=== PATIENT | male | born 1985 | race Caucasian/White ===

== ENCOUNTER 2019-05-19 13:57 | Inpatient (IN) | payer BC ==
[2019-05-19] MEDS ORDERED: ALBUTEROL SO4 2.5/IPRATROPIUM 0.5 INH SOL 3 ML VIAL.NEB. NEB ONE (14:15)
--- NOTE | 2019-05-19 14:43 | PDOC ---
History of Present Illness - General Chief Complaint: Shortness of Breath Stated Complaint: SHORTNESS OF BREATH Time Seen by Provider: 05/19/19 14:20 - History of Present Illness Initial Comments: Aquilino Raya is a 34yo man with a PMH of asthma who presents with worsening shortness of breath and productive cough. He reports that he was initially sick about a week before . At that time he had a cough and then nausea/ vomiting for a few days. He was seen at urgent care and given prednisone for the cough and some wheezing. His symptoms improved for several days, but he started feeling sick again a few days ago. He reports that he had worsening cough, now productive of sputum. He is not aware of any fever, but he does note that he has been unable to eat "for 2 weeks" due to poor appetite and generalized malaise. Mr Raya was seen again at urgent care 3-4 days ago and given a second prescription for prednisone and a z-elke for his cough. He reports that he completed the z-elke today without any improvement in his symptoms. His cough has also worsened despite treatment, and he has been coughing up green phlegm. He reports that he decided to come to the ED today because he has been having a "muscle spasm" over the right lower posterior and lateral ribs. This pain occurs with breathing, coughing, and with right arm movements. Mr Raya says that the pain has been making it difficult to breath. Mr Raya denies any recent travel, hospitalization, immobilization, history of cancer, personal or family history of blood clots, exposure to prisons or homeless populations, vaping, or cigarette smoking. He does endorse a recent 20lb weight loss over several weeks and notes that his girlfriend was treated last week for pneumonia. He additionally states that he was afraid he was very dehydrated today because his urine appeared very dark, though he has continued to void 3-4 times per day which is near his normal frequency. He denies hematuria, dysuria, or suprapubic pain. Past History - Past Medical History Allergies/Adverse Reactions: Allergies Allergy/AdvReac Type Severity Reaction Status Date / Time No Known Allergies Allergy Verified 05/19/19 14:14 Home Medications: Ambulatory Orders Albuterol Sulfate Inhaler - [Ventolin Hfa Inhaler -] 1 - 2 inh PO QID PRN Asthma: Yes COPD: No - Psycho Social/Smoking Cessation Hx Smoking History: Current some day smoker Information on smoking cessation initiated: No Drug/Substance Use Hx: Yes (marijuana) Review of Systems - Review of Systems Comments:: General: No fevers, no chills, + malaise, +weight loss HEENT: No changes in vision, no changes in hearing, + congestion, no sore throat CV: + Right lower chest pain, no palpitations, no LE edema Pulm: + SOB, + cough, + wheezing, +h/o asthma GI: No nausea or vomiting, no change in bowel habits, no melena : No frequency, no urgency, no dysuria. +dark urine Musc: No back pain, no joint swelling, no recent injury Skin: No rash, no lesions, no erythema Endo: No excessive thirst, no heat/cold intolerance Heme: No unusual bruising or bleeding, no swollen glands Neuro: No syncope, no numbness/tingling, no focal weakness Vasc: No claudication Psych: No recent change in mood, no SI or HI *Physical Exam - Vital Signs Last Vital Signs Temp Pulse Resp BP Pulse Ox 98.3 F 138 H 22 H 139/90 90 L 05/19/19 14:11 05/19/19 14:11 05/19/19 14:11 05/19/19 14:11 05/19/19 14:11 - Physical Exam General: Uncomfortable, in moderate distress HEENT: Atraumatic, PERRL, EOMI, MMM, voice normal, normal neck ROM Cards: Tachycardic, regular, no murmur appreciated Pulm: Tachypnic, hypoxic to 88% on RA, productive cough. No wheezing or crackles appreciated. Chest/back: TTP over right mid back, right lateral lower ribs. No erythema, no bruising, no rash Abd: Soft, nontender, nondistended Ext: Atraumatic. No LE edema. ROM intact. Strength 5/5 and equal bilaterally Vasc: Extremities WWP. Skin: Normal color, no rashes or lesions Neuro: A&Ox3, CN grossly intact, normal speech, motor/sensory grossly intact and symmetric Psych: Mood appropriate to situation ED Treatment Course - LABORATORY CBC & Chemistry Diagram: 05/19/19 15:19 05/19/19 15:05 Medical Decision Making - Medical Decision Making 05/19/19 14:43 Aquilino Raya is a 34yo man with a PMH of asthma who presents with two weeks of worsening shortness of breath and productive cough. He reports that he was initially sick about a week before Thanks. At this point, he was given a course of steroids about 2 weeks ago, improved, and was then given more prednisone and azithromycin earlier this week for recurrent symptoms. He notes that his girlfriend was treated last week for CAP. He additionally reports pain over the right lower ribs with breathing and with arm movement as well as "dehydration" due to very dark urine. - Tachycardic to 140's, hypoxic to around 90. No wheezing appreciated on exam, but already received nebulizer - Ddx includes asthma, influenza, URI, pneumonia, PE (though no known risk factors other than sedentary lifestyle recently due to feeling ill), UTI - CXR, CBC, CMP, d-dimer, UA, UCx - Nebs as needed 05/19/19 15:53 - Sats dropping to 80's, still tachy to 140's - CBC completed, notable for WBC 25. Chemistry pending. - CXR with [place]A "masslike density with possible infiltrate" and RLL infiltrate. C /w pneumonia, possible opportunistic infection, possible influenza - Bipap ordered for continued hypoxia - Adding remainder of septic workup, ABG, legionella antigen, influenza, acetaminophen, additional IVF, broad-spectrum antibiotics 05/19/19 17:00 - Febrile to 101.2F rectal temp - Labs reviewed. D-dimer 1678. CTA chest ordered - Chemistry notable for slight hyponatremia at 134. BUN 20.4 and Cr 1.4, no baseline available but likely elevated. Lactate slightly elevated at 2.1 - Tbili elevated at 3.5. Mild LFT elevations with AST 46, alk phos 122 - CPK pending - Will add CT abd/pelvis 05/19/19 18:29 - UA completed. 3+ blood with only 5-10 RBCs. However CPK is not elevated - CT's completed, reviewed in the ED. 05/19/19 19:10 - ABG c/w over-breathing, no other concerning abnormalities - CT read still pending - Sign out given to Dr Baumann for the remainder of his ED care. Admission pending CT results. Discussed with Dr Shanique Lopez PGY2 05/19/19 19:23 05/19/19 19:25 Discharge - Discharge Information Problems reviewed: Yes Clinical Impression/Diagnosis: Shortness of breath, Hypoxia, Metabolic alkalosis Sepsis Qualifiers: Sepsis type: sepsis due to unspecified organism Sepsis acute organ dysfunction status: unspecified Qualified Code(s): A41.9 - Sepsis, unspecified organism Condition: Guarded - Follow up/Referral - Patient Discharge Instructions - Post Discharge Activity
[2019-05-19] MEDS ORDERED: SODIUM CHLORIDE 1,000 ML IV STA (14:44)
[2019-05-19] MEDS ORDERED: ALBUTEROL SO4 0.083% IH SOL 2.5 MG/3 ML VIAL.NEB. NEB PRN (14:44)
[2019-05-19 15:27] LABS: BASO % 0.2 % (0-2.0); HEMATOCRIT 45.8 % (35.4-49); HEMOGLOBIN 15.8 GM/dL (11.7-16.9); LYMPH % 4.6 % (8-40); MCHC 34.5 g/dl (32.0-35.9); MEAN CELL VOLUME 92.8 fl (80-96); MEAN PLT VOLUME 9.1 fl (7.5-11.1); NEUT % 86.2 % (42.8-82.8); PLATELET COUNT 289 K/MM3 (134-434); RBC 4.93 M/mm3 (4.00-5.60); RDW 14.4 % (11.9-15.9); WHITE BLOOD COUNT 24.5 K/mm3 (4.0-10.0)
[2019-05-19] MEDS ORDERED: VANCOMYCIN 1,000 MG in DEXTROSE 5%-WATER - 250 ML IVPB ONE (15:37)
[2019-05-19] MEDS ORDERED: PIPERACILLIN/TAZOB 4.5 GM 4.5 GM in DEXTROSE 5%-WATER - 100 ML IVPB ONE (15:38)
[2019-05-19] MEDS ORDERED: SODIUM CHLORIDE 0.9% 500 ML INFUS.BAG IV ONE (15:40)
[2019-05-19] MEDS ORDERED: ACETAMINOPHEN 1000 MG/100 ML VIAL (NON FORMULARY) IVPB ONE (15:40)
[2019-05-19 15:57] LABS: ALBUMIN 3.4 g/dl (3.4-5.0); BILIRUBIN,TOTAL 3.5 mg/dL (0.2-1); BLOOD UREA NITROGEN 20.4 mg/dL (7-18); CALCIUM 8.7 mg/dL (8.5-10.1); CREATININE 1.4 mg/dL (0.55-1.3); POTASSIUM 4.9 mmol/L (3.5-5.1)
[2019-05-19] MEDS ORDERED: ACETAMINOPHEN INJECTION 100 ML IVPB ONE (16:13)
[2019-05-19] MEDS ORDERED: PIPERACILLIN/TAZOB 4.5 GM 4.5 GM/100 ML BAG IVPB ONE ×2 (16:14→22:46)
[2019-05-19 16:17] LABS: PLATELET ESTIMATE NORMAL
[2019-05-19] MEDS ORDERED: VANCOMYCIN 1 GRAM (PRE-DOCKED) 1,000 MG/250 ML BAG IVPB ONE (17:04)
[2019-05-19 17:22] LABS: EPI CELLS 1.4 /HPF (0-5/HPF); HYALINE CASTS 22 /lpf (0-8); URINE APPEARANCE TURBID; URINE BACTERIA 1.5 /hpf (NEGATIVE); URINE BILIRUBIN 2+ (NEGATIVE); URINE COLOR DK YELLOW; URINE GLUCOSE (UA) NEGATIVE (NEGATIVE); URINE KETONE 1+ (NEGATIVE); URINE LEUK ESTERASE TRACE (NEGATIVE); URINE NITRITE POSITIVE (NEGATIVE); URINE PROTEIN 3+ (NEGATIVE); URINE WBC 4 /hpf (0-5)
[2019-05-19 18:37] LABS: ARTERIAL BLD GAS O2 SATURATION 94.6 % (95-98); ARTERIAL BLOOD GAS BASE EXCESS 2.3 meq/l (-2-2); ARTERIAL BLOOD GAS PO2 72.3 mmHg (80-100); ARTERIAL BLOOD GAS pH 7.48 (7.35-7.45)
[2019-05-19 18:39] LABS: ALLENS TEST POSITIVE
--- NOTE | 2019-05-19 19:18 | PDOC ---
*Physical Exam - Vital Signs Last Vital Signs Temp Pulse Resp BP Pulse Ox 101.2 F H 128 H 22 H 113/82 99 05/19/19 16:54 05/19/19 19:02 05/19/19 19:02 05/19/19 19:02 05/19/19 19:02 <IbisAmalia - Last Filed: 05/19/19 21:21> - Vital Signs Last Vital Signs Temp Pulse Resp BP Pulse Ox 98.3 F 103 H 18 136/68 92 L 05/20/19 06:38 05/20/19 06:38 05/20/19 06:38 05/20/19 06:38 05/20/19 06:38 <Makayla Bay - Last Filed: 05/20/19 10:01> ED Treatment Course - LABORATORY CBC & Chemistry Diagram: 05/19/19 15:19 05/19/19 15:05 - Medications Given in the ED: ED Medications Discontinued Medications Generic Name Dose Route Start Last Admin Trade Name Adriana PRN Reason Stop Dose Admin Acetaminophen 1,000 mg 05/19/19 15:40 05/19/19 16:27 Ofirmev Injection - IVPB 05/19/19 15:41 1,000 mg ONCE ONE Administration Diphenhydramine HCl 25 mg 05/19/19 18:37 05/19/19 19:02 Benadryl Injection - IVPB 05/19/19 18:38 25 mg ONCE ONE Administration Sodium Chloride 1,000 mls @ 1,000 mls/hr 05/19/19 14:44 05/19/19 15:22 Normal Saline - IV 05/19/19 15:43 1,000 mls/hr ASDIR STA Administration Vancomycin HCl 1,000 mg/ 250 mls @ 250 mls/hr 05/19/19 15:37 05/19/19 17:13 Dextrose IVPB 05/19/19 16:36 250 mls/hr ONCE ONE Administration Protocol Piperacillin Sod/Tazobactam 100 mls @ 200 mls/hr 05/19/19 15:38 05/19/19 16: 27 Sod 4.5 gm/ Dextrose IVPB 05/19/19 16:07 200 mls/hr ONCE ONE Administration Protocol Sodium Chloride 1,000 ml 05/19/19 15:40 05/19/19 17:14 Normal Saline - IV 05/19/19 15:41 1,000 ml ONCE ONE Administration <Amalia Baumann - Last Filed: 05/19/19 21:21> - LABORATORY CBC & Chemistry Diagram: 05/20/19 05:50 05/20/19 05:50 - ADDITIONAL ORDERS Additional order review: 05/19/19 15:19 RBC 4.93 MCV 92.8 MCHC 34.5 RDW 14.4 MPV 9.1 Neutrophils % 86.2 H Lymphocytes % 4.6 L Monocytes % 9.0 Eosinophils % 0.0 Basophils % 0.2 - RADIOLOGY Radiology Studies Ordered: Category Date Time Status CHEST CTA [CT] Stat CT Scan 05/19/19 16:22 Taken - Medications Given in the ED: ED Medications Discontinued Medications Generic Name Dose Route Start Last Admin Trade Name Freq PRN Reason Stop Dose Admin Acetaminophen 1,000 mg 05/19/19 15:40 05/19/19 16:27 Ofirmev Injection - IVPB 05/19/19 15:41 1,000 mg ONCE ONE Administration Diphenhydramine HCl 25 mg 05/19/19 18:37 05/19/19 19:02 Benadryl Injection - IVPB 05/19/19 18:38 25 mg ONCE ONE Administration Ethambutol HCl 1,600 mg 05/19/19 20:18 05/20/19 00:02 Myambutol - PO 05/19/19 20:19 1,600 mg ONCE ONE Administration Sodium Chloride 1,000 mls @ 1,000 mls/hr 05/19/19 14:44 05/19/19 15:22 Normal Saline - IV 05/19/19 15:43 1,000 mls/hr ASDIR STA Administration Vancomycin HCl 1,000 mg/ 250 mls @ 250 mls/hr 05/19/19 15:37 05/19/19 17:13 Dextrose IVPB 05/19/19 16:36 250 mls/hr ONCE ONE Administration Protocol Piperacillin Sod/Tazobactam 100 mls @ 200 mls/hr 05/19/19 15:38 05/19/19 16: 27 Sod 4.5 gm/ Dextrose IVPB 05/19/19 16:07 200 mls/hr ONCE ONE Administration Protocol Rifampin 600 mg/ Dextrose 500 mls @ 166.667 mls/hr 05/19/19 20:15 05/20/19 00 :02 IV 05/19/19 20:16 Not Given ONCE ONE Isoniazid 300 mg 05/19/19 20:30 05/20/19 00:02 Inh - PO 05/19/19 20:31 300 mg ONCE ONE Administration Pyrazinamide 2,000 mg 05/19/19 20:30 05/20/19 00:02 Pyrazinamide - PO 05/19/19 20:31 2,000 mg ONCE ONE Administration Rifampin 600 mg 05/19/19 23:10 05/20/19 00:02 Rifadin - PO 05/19/19 23:11 600 mg ONCE ONE Administration Sodium Chloride 1,000 ml 05/19/19 15:40 05/19/19 17:14 Normal Saline - IV 05/19/19 15:41 1,000 ml ONCE ONE Administration <Makayla Bay - Last Filed: 05/20/19 10:01> Medical Decision Making - Medical Decision Making Pt signed out to me by Dr. Lopez, see prior note. 34 year old male with PMH asthma presented to ED for SOB/cough x1.5 weeks. He was seen at Urgent Care when his symptoms developed, given prednisone with improvement of symptoms. After finishing the steroids his symptoms returned. His cough became productive, he had large anorexia resulting in 20 pound weight loss in 2 weeks, and generalized weakness. He returned to Urgent Care x3-4 days ago, was given another course of prednisone and Azithromycin Z-pack, which did not improve his symptoms. He also complained of right sided anterior/lateral rib wall pain, worse with inspiration/coughing/right arm movement. He denied any recent travel, hospitalization, immobilization, history of cancer , personal or family history of blood clots, exposure to prisons or homeless populations, vaping, or cigarette smoking. Initial Vital Signs Temp Pulse Resp BP Pulse Ox 98.3 F 138 H 22 H 139/90 90 L 05/19/19 14:11 05/19/19 14:11 05/19/19 14:11 05/19/19 14:11 05/19/19 14:11 Pt presented to ED tachycardic, hypoxic on room air, tachypneic. No hypotension. Vital Signs Temperature 101.2 F H 05/19/19 16:54 Pulse Rate 128 H 05/19/19 19:02 Respiratory Rate 22 H 05/19/19 19:02 Blood Pressure 113/82 05/19/19 19:02 O2 Sat by Pulse Oximetry (%) 99 05/19/19 19:02 Febrile. Still tachycardic and tachypneaic. No hypotension. No hypoxia on nasal cannula. Laboratory Last Values WBC 24.5 K/mm3 (4.0-10.0) H 05/19/19 15:19 RBC 4.93 M/mm3 (4.00-5.60) 05/19/19 15:19 Hgb 15.8 GM/dL (11.7-16.9) 05/19/19 15:19 Hct 45.8 % (35.4-49) 05/19/19 15:19 MCV 92.8 fl (80-96) 05/19/19 15:19 MCH 32.0 pg (25.7-33.7) 05/19/19 15: MCHC 34.5 g/dl (32.0-35.9) 05/19/19 15:19 RDW 14.4 % (11.9-15.9) 05/19/19 15:19 Plt Count 289 K/MM3 (134-434) 05/19/19 15: MPV 9.1 fl (7.5-11.1) 05/19/19 15:19 Absolute Neuts (auto) 21.2 K/mm3 (1.5-8.0) H 05/19/19 15:19 Neutrophils % 86.2 % (42.8-82.8) H 05/19/19 15:19 Neutrophils % (Manual) 84.8 % (42.8-82.8) H 05/19/19 15:19 Band Neutrophils % 0.0 % 05/19/19 15:19 Lymphocytes % 4.6 % (8-40) L 05/19/19 15:19 Lymphocytes % (Manual) 4.0 % (8-40) L 05/19/19 15:19 Monocytes % 9.0 % (3.8-10.2) 05/19/19 15:19 Monocytes % (Manual) 5 % (3.8-10.2) 05/19/19 15:19 Eosinophils % 0.0 % (0-4.5) 05/19/19 15: Eosinophils % (Manual) 0.0 % (0-4.5) 05/19/19 15: Basophils % 0.2 % (0-2.0) 05/19/19 15: Basophils % (Manual) 0.0 % (0-2.0) 05/19/19 15:19 Myelocytes % (Man) 0 % (0-2) 05/19/19 15: Promyelocytes % (Man) 0 % (0-2) 05/19/19 15: Blast Cells % (Manual) 0 % (0-0) 05/19/19 15: Nucleated RBC % 0 % (0-0) 05/19/19 15: Metamyelocytes 0 % (0-2) 05/19/19 15: Platelet Estimate Normal 05/19/19 15: Polychromasia 1+ 05/19/19 15: D-Dimer 1678 ng/ml (0-500) H 05/19/19 15: Anticoagulation Therapy No Result Required. 05/19/19 18:31 Puncture Site Right radial 05/19/19 18:31 ABG pH 7.48 (7.35-7.45) H 05/19/19 18:31 ABG pCO2 at Pt Temp 34.0 mmHg (35-45) L 05/19/19 18:31 ABG pO2 at Pt Temp 72.3 mmHg (80-100) L 05/19/19 18:31 ABG HCO3 25.0 mmol/L (22-27) 05/19/19 18:31 ABG O2 Sat (Measured) 94.6 % (95-98) L 05/19/19 18:31 ABG O2 Content 18.1 % vol 05/19/19 18:31 ABG Base Excess 2.3 meq/l (-2-2) H 05/19/19 18:31 Ki Test Positive 05/19/19 18:31 O2 Delivery Device No Result Required. 05/19/19 18:31 Oxygen Flow Rate No 05/19/19 18:31 Vent Mode No Result Required. 05/19/19 18:31 Vent Rate No Result Required. 05/19/19 18:31 Mechanical Rate No Result Required. 05/19/19 18:31 Pressure Support Vent No Result Required. 05/19/19 18:31 Sodium 134 mmol/L (136-145) L 05/19/19 15:05 Potassium 4.9 mmol/L (3.5-5.1) 05/19/19 15:05 Chloride 95 mmol/L (98-107) L 05/19/19 15:05 Carbon Dioxide 29 mmol/L (21-32) 05/19/19 15:05 Anion Gap 9 MMOL/L (8-16) 05/19/19 15:05 BUN 20.4 mg/dL (7-18) H 05/19/19 15:05 Creatinine 1.4 mg/dL (0.55-1.3) H 05/19/19 15:05 Est GFR (CKD-EPI)AfAm 74.91 05/19/19 15:05 Est GFR (CKD-EPI)NonAf 64.63 05/19/19 15:05 Random Glucose 152 mg/dL (74-106) H 05/19/19 15:05 Lactic Acid 2.1 mmol/L (0.4-2.0) H 05/19/19 16:04 Calcium 8.7 mg/dL (8.5-10.1) 05/19/19 15:05 Total Bilirubin 3.5 mg/dL (0.2-1) H 05/19/19 15:05 AST 46 U/L (15-37) H 05/19/19 15:05 ALT 54 U/L (13-61) 05/19/19 15:05 Alkaline Phosphatase 122 U/L (45-117) H 05/19/19 15:05 Creatine Kinase 141 U/L (26-308) 05/19/19 15:05 Total Protein 8.0 g/dl (6.4-8.2) 05/19/19 15:05 Albumin 3.4 g/dl (3.4-5.0) 05/19/19 15:05 Urine Color Dk yellow 05/19/19 17:11 Urine Appearance Turbid 05/19/19 17:11 Urine pH 5.0 (5.0-8.0) 05/19/19 17:11 Ur Specific Chauncey 1.035 (1.010-1.035) 05/19/19 17:11 Urine Protein 3+ (NEGATIVE) H 05/19/19 17:11 Urine Glucose (UA) Negative (NEGATIVE) 05/19/19 17:11 Urine Ketones 1+ (NEGATIVE) H 05/19/19 17:11 Urine Blood 3+ (NEGATIVE) H 05/19/19 17:11 Urine Nitrite Positive (NEGATIVE) H 05/19/19 17:11 Urine Bilirubin 2+ (NEGATIVE) H 05/19/19 17:11 Urine Urobilinogen 2.0 mg/dL (0.2-1.0) 05/19/19 17:11 Ur Leukocyte Esterase Trace (NEGATIVE) 05/19/19 17:11 Urine WBC (Auto) 4 /hpf (0-5) 05/19/19 17:11 Urine RBC (Auto) 5-10 /hpf (0-4) 05/19/19 17:11 Urine Casts (Auto) 22 /lpf (0-8) 05/19/19 17:11 U Pathogenic Cast Auto Positive /lpf (NEGATIVE) 05/19/19 17:11 U Epithel Cells (Auto) 1.4 /HPF (0-5/HPF) 05/19/19 17:11 Urine Bacteria (Auto) 1.5 /hpf (NEGATIVE) 05/19/19 17:11 Influenza A (Rapid) Negative (Negative) 05/19/19 16:04 Influenza B (Rapid) Negative (Negative) 05/19/19 16:04 Leukocytosis with left shift. No anemia. D-dimer elevated. CTA performed. Mild lactic acidosis. IVF running. Elevated total bilirubin. Hematuria. Negative influenza testing. 05/19/19 20:09 Radiologist called, reported CT concerning for TB. Pt transferred to Room 8 for isolation. Family members given N95 masks. ID paged. 05/19/19 20:48 Dr. Naranjo, ID, recommended initiation of RIPE, pulmonary consult (may need bronch, may need steroids), HIV testing, PCP, legionella testing. Dr. Bass informed, recommended no steroids at this time. Pt to be admitted under Dr. Buckner care. Pending admission. <Amalia Baumann - Last Filed: 05/19/19 21:21> - Critical Care Time Total Critical Care Time (minutes): 60 Critical Care Statement: The care of this patient involved high complexity decision making to prevent further life threatening deterioration of the patient 's condition and/or to evaluate & treat vital organ system(s) failure or risk of failure. <Makayla Bay - Last Filed: 05/20/19 10:01> Discharge - Discharge Information Problems reviewed: Yes - Admission Yes <Amalia Baumann - Last Filed: 05/19/19 21:21> <Makayla Bay - Last Filed: 05/20/19 10:01> - Discharge Information Clinical Impression/Diagnosis: Shortness of breath, Hypoxia, Metabolic alkalosis, Cavitary lesion of lung Sepsis Qualifiers: Sepsis type: sepsis due to unspecified organism Sepsis acute organ dysfunction status: unspecified Qualified Code(s): A41.9 - Sepsis, unspecified organism Condition: Guarded
[2019-05-19] MEDS ORDERED: RIFAMPIN IV ONE (20:15)
[2019-05-19] MEDS ORDERED: DEXTROSE 5% IV ONE (20:15)
[2019-05-19] MEDS ORDERED: WATER IV ONE (20:15)
[2019-05-19] MEDS ORDERED: ETHAMBUTOL HCL 400 MG TABLET PO ONE (20:18)
[2019-05-19] MEDS ORDERED: ISONIAZID 300 MG TABLET (FP) PO ONE (20:30)
[2019-05-19] MEDS ORDERED: PYRAZINAMIDE 500 MG TABLET PO ONE (20:30)
--- NOTE | 2019-05-19 21:07 | PDOC ---
Documentation entered by Elena Castaneda SCRIBE, acting as scribe for Makayla Bay MD. Makayla Bay MD: This documentation has been prepared by the Leonel adam Brenda, SCRIBE, under my direction and personally reviewed by me in its entirety. I confirm that the documentation accurately reflects all work, treatment, procedures, and medical decision making performed by me. Attending Attestation - Resident Resident Name: JohnCarrie - ED Attending Attestation I have performed the following: I have examined & evaluated the patient, The case was reviewed & discussed with the resident, I agree w/resident's findings & plan, Exceptions are as noted - HPI HPI: 05/19/19 16:51 The patient is a 34 year old male, with a significant PMH of asthma (never hospitalized, not on controller meds, albuterol PRN) who presents to the emergency department with 2 weeks of a productive cough and shortness of breath , which progressed into right pleuritic paraspinal thoracic pain and right sided chest pain over the last 3 days. Patient notes that his chest pain and thoracic back pain are aggravated by breathing and coughing. Patient states that what finally prompted him into coming into the ED was seeing dark orange urine today. Patient also endorses 4 episodes of nausea and NBNB vomiting last week, but none this wk. He also notes a 20 pound weight loss in the last 2 weeks. Pt's partner at the bedside was here in the hospital 2 weeks ago for pneumonia, and pt was with her in the hospital almost everyday. Denies calf pain , swelling, Denies recent travel. Denies hx PNA or similar sxs as today. No hx vaping. No exposure to homeless, intermediate population. Works in construction. The patient denies headache and dizziness. Denies fever, chills, diarrhea and constipation. Denies dysuria, frequency, urgency and hematuria. Denies sore throat. Allergies: NKA Past surgical history: None reported Social history: Current someday smoker. Smokes marijuana. - Physicial Exam PE: 05/19/19 16:51 Agree with resident's exam. - Medical Decision Making 05/19/19 19:04 34yo M hx asthma, presents to the ED with 2 weeks of progressive SOB, productive cough, fevers, back pain, weight loss. Pt tachycardic to 140, in sinus, febrile. He is also hypoxic to 90% on RA, corrects to 95% with NC. +mildly increased WOB CXR concerning for possible multifocal PNA, CT recommended Labs with leukocytosis to 25, pt covered with vanc/zosyn (he just completed a z- pack) Labs also remarkable for hyperbili to 3.5, mildly elevated alk phos Dimer ++ Ordered CTA to r/o PE and to further evaluate CXR findings Also ordered CTAP given hyperbilirubinemia Pt on bipap for resp support CTA/CTAP pending, signed out to evening team
--- NOTE | 2019-05-19 21:53 | HP ---
CHIEF COMPLAINT: productive cough + SOB PCP: HISTORY OF PRESENT ILLNESS: 34 y/o M, pmh of asthma presents w/ SOB and greenish productive cough of 1 week duration that started spontaneously and was associated with generalized weakness , decrease in appetite, 20b weight loss and right sided rib pain. Pt reports that 1 week ago he began to feel short of breath for which he went to a urgent care, where he was given prednisone for 3 days. His symptoms did not improve and he developed a productive cough w/ greenish sputum, for which he returned to the urgent care, where he was given another dose of prednisone and a Z-pack, which he completed today. Pt reports that his symptoms have worsened since onset. He attributes his rib pain to movement and coughing. He reports that his girl friend was recently diagnosed and treated for pneumonia. On admission pt was febrile at 101.2F, tachy to 140s and hypoxic to the high 80s. He was placed on BiPaP and his O2 sat came back up. He denies any recent travels, close contact at facilities, exposure to prisons or homeless populations, night sweats, n/v/d/chest pain, exposure to TB positive pts. ER course was notable for: (1)Pt started on Vanc and Zosyn (2)Pt started on 4 drug regime for TB- Isoniazid, Pyrazinamide, Ethambutol, Rifampin (3)CXR: left upper lobe mass like density w/ possible infiltrates and RLL infiltrates Recent Travel: denies PAST MEDICAL HISTORY: Asthma, never been intubated or hospitalized for asthma PAST SURGICAL HISTORY: Tonsillectomy Social History: Smoking:denies cigarette smoking Alcohol:occasional Drugs: Marijuana Allergies No Known Allergies Allergy (Verified 05/19/19 14:14) HOME MEDICATIONS: Home Medications Medication Instructions Recorded Albuterol Sulfate Inhaler - 1 - 2 inh PO QID PRN 05/19/19 [Ventolin Hfa Inhaler -] REVIEW OF SYSTEMS CONSTITUTIONAL: Admits: fever, generalized weakness, malaise, loss of appetite, weight change Absent: chills, diaphoresis HEENT: Absent: rhinorrhea, nasal congestion, throat pain, throat swelling, difficulty swallowing, mouth swelling, ear pain, eye pain, CARDIOVASCULAR: Absent: chest pain, syncope, palpitations, irregular heart rate, lightheadedness , peripheral edema RESPIRATORY: Admits: cough, shortness of breath, Absent: dyspnea with exertion, orthopnea, wheezing, stridor, GASTROINTESTINAL: Absent: abdominal pain, abdominal distension, nausea, vomiting, diarrhea, constipation, melena GENITOURINARY: Admits: increased frequency, Absent: dysuria, urgency, hesitancy, hematuria, flank pain, genital pain MUSCULOSKELETAL: Admits: Right sided upper back and lateral rib pain Absent: arthralgia, joint swelling, neck pain SKIN: Absent: rash, itching, pallor HEMATOLOGIC/IMMUNOLOGIC: Absent: easy bleeding, easy bruising, lymphadenopathy, ENDOCRINE: Admits: 20Ib weight loss recently in the past few weeks Absent: unexplained weight gain, heat intolerance, cold intolerance NEUROLOGIC: Absent: headache, focal weakness or paresthesias, dizziness, unsteady gait, seizure, mental status changes, PSYCHIATRIC: Absent: anxiety, depression, suicidal PHYSICAL EXAMINATION Vital Signs - 24 hr 05/19/19 05/19/19 05/19/19 14:11 16:54 18:40 Temperature 98.3 F 101.2 F H Pulse Rate 138 H Pulse Rate [ Left Apical] Respiratory 22 H Rate Blood Pressure 139/90 Blood Pressure [Left Arm] O2 Sat by Pulse 90 L 97 Oximetry (%) GENERAL: Awake, alert, and fully oriented, in no acute distress. Pt on NC 2L, tolerating well, no breathing difficulty at the moment EYES: Pupils equal, round and reactive to light, extraocular movements intact EARS, NOSE, THROAT: Oropharynx clear without exudates. Moist mucous membranes. NECK: Normal range of motion, supple without lymphadenopathy LUNGS: Breath sounds equal, clear to auscultation bilaterally. Mild Wheezes in b /l lower lobes, and no crackles. HEART: Regular rate and rhythm, normal S1 and S2 without murmur, rub or gallop. ABDOMEN: Soft, nontender, not distended, normoactive bowel sounds, no guarding, no rebound, no masses. MUSCULOSKELETAL: Right sided Rib tenderness to palpation. Normal range of motion at all joints. No bony deformities. No CVA tenderness. UPPER EXTREMITIES: 2+ pulses, warm, well-perfused. No cyanosis. No peripheral edema. LOWER EXTREMITIES: 2+ pulses, warm, well-perfused. No calf tenderness. No peripheral edema. NEUROLOGICAL: Cranial nerves II-XII intact. Normal speech PSYCHIATRIC: Cooperative. Good eye contact. Anxious SKIN: Warm, dry, normal turgor Laboratory Results - last 24 hr 05/19/19 05/19/19 05/19/19 15:05 15:19 15:19 WBC 24.5 H RBC 4.93 Hgb 15.8 Hct 45.8 MCV 92.8 MCH 32.0 MCHC 34.5 RDW 14.4 Plt Count 289 MPV 9.1 Absolute Neuts (auto) 21.2 H Neutrophils % 86.2 H Neutrophils % (Manual) 84.8 H Band Neutrophils % 0.0 Lymphocytes % 4.6 L Lymphocytes % (Manual) 4.0 L Monocytes % 9.0 Monocytes % (Manual) 5 Eosinophils % 0.0 Eosinophils % (Manual) 0.0 Basophils % 0.2 Basophils % (Manual) 0.0 Myelocytes % (Man) 0 Promyelocytes % (Man) 0 Blast Cells % (Manual) 0 Nucleated RBC % 0 Metamyelocytes 0 Platelet Estimate Normal Polychromasia 1+ D-Dimer 1678 H Anticoagulation Therapy Puncture Site ABG pH ABG pCO2 at Pt Temp ABG pO2 at Pt Temp ABG HCO3 ABG O2 Sat (Measured) ABG O2 Content ABG Base Excess Ki Test O2 Delivery Device Oxygen Flow Rate Vent Mode Vent Rate Mechanical Rate Pressure Support Vent Sodium 134 L Potassium 4.9 Chloride 95 L Carbon Dioxide 29 Anion Gap 9 BUN 20.4 H Creatinine 1.4 H Est GFR (CKD-EPI)AfAm 74.91 Est GFR (CKD-EPI)NonAf 64.63 Random Glucose 152 H Lactic Acid Calcium 8.7 Total Bilirubin 3.5 H AST 46 H ALT 54 Alkaline Phosphatase 122 H Creatine Kinase 141 Total Protein 8.0 Albumin 3.4 Urine Color Urine Appearance Urine pH Ur Specific [place] Urine Protein Urine Glucose (UA) Urine Ketones Urine Blood Urine Nitrite Urine Bilirubin Urine Urobilinogen Ur Leukocyte Esterase Urine WBC (Auto) Urine RBC (Auto) Urine Casts (Auto) U Pathogenic Cast Auto U Epithel Cells (Auto) Urine Bacteria (Auto) Influenza A (Rapid) Influenza B (Rapid) ASSESSMENT/PLAN: 34 y/o M, pmh of asthma presents w/ SOB and greenish productive cough of 1 week duration that started spontaneously and was associated with generalized weakness , decrease in appetite, 20b weight loss and right sided rib pain likely 2/2 to CAP #Sepsis likely 2/2 to Pneumonia SOB and productive cough must r/o TB in the setting of 20Ib weight loss, generalized weakness, decreased appetite, CT chest with cavitary lesions Other causes to consider include necrotizing bacterial multifocal pneumonia caused by staph aureus or pseudomonas, aspergillosis or malignancy White count 24.5, Febrile 101.2 rectal Flu negative ABG- respiratory alkalosis D-Dimers elevated to 1678 Lactic acid at 2.1 mildly elevated CXR- showing left upper lobe mass like density w/ possible infiltrates and RLL infiltrates CTA chest-prelim- There is a thick walled cavitary mass lesion in the anterior basal segment of the right lower lobe, 3.1 x 2.9 x 3.3 cm with an 8 cm long communicating. There is a cavitary lesion with thick irregular griggs in the left upper lobe, measuring 5.3 x 4.2 x 5.2 cm. The possibility of tuberculosis cannot be ruled out CT a/p- pending Pt started on Vanc and zosyn Pt started on 4 drug regime for TB- Isoniazid, Pyrazinamide, Ethambutol, Rifampin ID consulted- Dr Naranjo Pulmonary consulted- Dr. Estrada, will likely need bronchoscopy Sputum Cx sent, AFB cx/smear sent HIV testing sent Quantiferon for TB Crypto serum ag #Asthma Albuterol as need NC 2L if desats or sob- place on BiPaP #Hyper bili, elevated alk phos RUQ Doppler ultrasound- r/o cholestasis #DVT ppx scds b/l FEN monitor lytes regular diet Dispo: f/u Cx in am, cont TB tx, cont abx Visit type - Emergency Visit Emergency Visit: Yes ED Registration Date: 05/19/19 Care time: The patient presented to the Emergency Department on the above date and was hospitalized for further evaluation of their emergent condition. - New Patient This patient is new to me today: Yes Date on this admission: 05/21/19 - Critical Care Critical Care patient: No ATTENDING PHYSICIAN STATEMENT I saw and evaluated the patient. I reviewed the resident's note and discussed the case with the resident. I agree with the resident's findings and plan as documented. SUBJECTIVE: OBJECTIVE: ASSESSMENT AND PLAN:
--- NOTE | 2019-05-19 22:05 | PN ---
Teaching Attending Note Name of Resident: Vinayak Ashley ATTENDING PHYSICIAN STATEMENT I saw and evaluated the patient. I reviewed the resident's note and discussed the case with the resident. I agree with the resident's findings and plan as documented. SUBJECTIVE: 34-year-old male with a medical history of asthma, not taking any controller medications apart from albuterol as needed, presented complaint of 2 weeks of productive cough with green sputum and worsening shortness of breath. Also some pleuritic chest pain in his right chest over the past 3 days. Patient has no recent travels outside of the country, born in the , never incarcerated. Denies any history of TB or any contacts with any patients with TB. No history of IV drug abuse. Patient sought medical attention at the urgent care over the past week completed 8 days of prednisone 40 mg daily and a Z-Gus. OBJECTIVE: Last Vital Signs Temp Pulse Resp BP Pulse Ox 101.2 F H 128 H 22 H 113/82 98 05/19/19 16:54 05/19/19 19:02 05/19/19 19:02 05/19/19 19:02 05/19/19 20:30 GENERAL: Well developed, well nourished. Awake and alert. No acute distress. Obese HEENT: Normocephalic, atraumatic. PERRLA, EOMI. No conjunctival pallor. Sclera are non- icteric. Moist mucous membranes. Oropharynx is clear. NECK: Supple. Full ROM. No JVD. Carotid pulses 2+ and symmetric, without bruits. No thyromegaly. No lymphadenopathy. CARDIOVASCULAR: Regular rate and rhythm. No murmurs, rubs, or gallops. Distal pulses are 2+ and symmetric. PULMONARY: No evidence of respiratory distress. Lungs clear to auscultation bilaterally. No wheezing, rales or rhonchi. ABDOMINAL: Soft. Non-tender. Non-distended. No rebound or guarding. No organomegaly. Normoactive bowel sounds. MUSCULOSKELETAL Normal range of motion at all joints. No bony deformities or tenderness. No CVA tenderness. EXTREMITIES: No cyanosis. No clubbing. No edema. No calf tenderness. SKIN: Warm and dry. Normal capillary refill. No rashes. No jaundice. PSYCHIATRIC: Cooperative. Good eye contact. Appropriate mood and affect. Abnormal Lab Results 05/19/19 05/19/19 05/19/19 15:05 15:19 15:19 WBC 24.5 H Absolute Neuts (auto) 21.2 H Neutrophils % 86.2 H Neutrophils % (Manual) 84.8 H Lymphocytes % 4.6 L Lymphocytes % (Manual) 4.0 L D-Dimer 1678 H ABG pH ABG pCO2 at Pt Temp ABG pO2 at Pt Temp ABG O2 Sat (Measured) ABG Base Excess Sodium 134 L Chloride 95 L BUN 20.4 H Creatinine 1.4 H Random Glucose 152 H Lactic Acid Total Bilirubin 3.5 H AST 46 H Alkaline Phosphatase 122 H Urine Protein Urine Ketones Urine Blood Urine Nitrite Urine Bilirubin 05/19/19 05/19/19 05/19/19 16:04 17:11 18:31 WBC Absolute Neuts (auto) Neutrophils % Neutrophils % (Manual) Lymphocytes % Lymphocytes % (Manual) D-Dimer ABG pH 7.48 H ABG pCO2 at Pt Temp 34.0 L ABG pO2 at Pt Temp 72.3 L ABG O2 Sat (Measured) 94.6 L ABG Base Excess 2.3 H Sodium Chloride BUN Creatinine Random Glucose Lactic Acid 2.1 H Total Bilirubin AST Alkaline Phosphatase Urine Protein 3+ H Urine Ketones 1+ H Urine Blood 3+ H Urine Nitrite Positive H Urine Bilirubin 2+ H Studies reviewed ASSESSMENT AND PLAN: 34-year-old Immunocompetent male with sepsis, tachycardia, tachypnea, lactic acidosis, fever of 101.2f, leukocytosis with multiple cavitary lesions found on chest CT. Differential diagnosis at this point includes necrotizing bacterial multifocal pneumonia which Is probably secondary to non-AFB bacteria such as staph aureus or Pseudomonas species. pulmonary tuberculosis Is still certainly a possibility and must be ruled out however is less likely given paucity of risk factors. r/o cavitary fungal disease such as aspergillosis, malignancy. 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 Admit to [facility] Patient must be in airborne isolation 3 sputum's for AFB culture and smear Sputum for AFB PCR QuantiFERON HIV serology Sputum for bacterial culture Urine Legionella antigen Fungitell Aspergillus serum antigen Histo urine antigen Crypto serum antigen Vancomycin 1 g IV every 12 Zosyn 4.5 g IV every 6 hourspseudomonal dosing Would NOT give empiric pulmonary TB therapy at this time given higher likelihood of alternative etiologies of cavitating pulmonary lesions and the risks of side effects would outweigh the benefits at this time ID consult Pulmonary evaluationwould consider bronchoscopy and BAL for diagnostic purposes Supplemental oxygen as needed #Hyperglycemia NovoLog sliding scale Send A1c #Elevated creatinineno baseline renal parameters for comparison, would consider VIDAL versus CKD at this time Trend renal parameters Avoid nephrotoxins Renal sonogram IV fluid hydration #Hyper bilirubinemia, elevated alk phos, ASTshould rule out underlying hepatobiliary pathology. May be secondary to sepsis Right upper quadrant Doppler ultrasound to rule out cholestasis Heparin subcutaneously for DVT prophylaxis
[2019-05-19] MEDS ORDERED: RIFAMPIN 300 MG CAPSULE PO ONE (23:10)
[2019-05-19] MEDS: PIPERACILLIN/TAZOB 4.5 GM 4.5 GM in DEXTROSE 5%-WATER 100 ML IVPB SCH (23:16)
[2019-05-20] MEDS ORDERED: VANCOMYCIN 500 MG VIAL (RESTRICTED TO ID ONLY) ONE (03:39)
[2019-05-20] MEDS ORDERED: PIPERACILLIN/TAZOB 4.5 GM 4.5 GM/100 ML BAG IVPB ONE ×2 (03:39→09:50)
[2019-05-20] MEDS: PIPERACILLIN/TAZOB 4.5 GM 4.5 GM in DEXTROSE 5%-WATER 100 ML IVPB SCH ×2 (03:52→09:57)
[2019-05-20] MEDS ORDERED: VANCOMYCIN 1 GRAM (PRE-DOCKED) 1,000 MG/250 ML BAG IVPB SCH (05:00)
[2019-05-20] MEDS ORDERED: ALBUTEROL SO4 0.083% IH SOL 2.5 MG/3 ML VIAL.NEB. NEB ONE (06:28)
[2019-05-20 06:35] LABS: BASO % 0.5 % (0-2.0); HEMATOCRIT 40.2 % (35.4-49); HEMOGLOBIN 13.6 GM/dL (11.7-16.9); LYMPH % 3.7 % (8-40); MCH 31.6 pg (25.7-33.7); MCHC 33.7 g/dl (32.0-35.9); MEAN CELL VOLUME 93.6 fl (80-96); MEAN PLT VOLUME 9.1 fl (7.5-11.1); MONO % 7.3 % (3.8-10.2); NEUT % 88.5 % (42.8-82.8); PLATELET COUNT 306 K/MM3 (134-434); RBC 4.29 M/mm3 (4.00-5.60); RDW 14.3 % (11.9-15.9)
[2019-05-20 07:14] LABS: ALBUMIN 2.6 g/dl (3.4-5.0); BILIRUBIN,TOTAL 5.2 mg/dL (0.2-1); BLOOD UREA NITROGEN 18.9 mg/dL (7-18); CALCIUM 7.7 mg/dL (8.5-10.1); CREATININE 1.3 mg/dL (0.55-1.3); MAGNESIUM 2.7 mg/dL (1.8-2.4); PHOSPHOROUS 2.8 mg/dL (2.5-4.9); POTASSIUM 3.8 mmol/L (3.5-5.1); TOT PROT 6.7 g/dl (6.4-8.2)
[2019-05-20] MEDS: SODIUM CHLORIDE 1,000 ML IV SCH (09:57)
[2019-05-20] MEDS ORDERED: ACETAMINOPHEN 325 MG TABLET (FP) PO PRN (09:57)
[2019-05-20] MEDS ORDERED: ACETAMINOPHEN 325 MG TABLET (FP) ONE (09:58)
[2019-05-20 10:11] LABS: PLATELET ESTIMATE NORMAL
--- NOTE | 2019-05-20 10:48 | PN ---
Progress Note (short form) - Note Progress Note: Subjective: He feels a little better this am . denies SOB . pleurititc cp is better on R side. feels tired. NO abd pain. NO sick contact Objective: Vital Signs: Last Vital Signs Temp Pulse Resp BP Pulse Ox 98.3 F 103 H 18 136/68 92 L 05/20/19 06:38 05/20/19 06:38 05/20/19 06:38 05/20/19 06:38 05/20/19 06:38 Laboratory Results - last 24 hr 05/19/19 05/19/19 05/19/19 15:05 15:19 15:19 WBC 24.5 H RBC 4.93 Hgb 15.8 Hct 45.8 MCV 92.8 MCH 32.0 MCHC 34.5 RDW 14.4 Plt Count 289 MPV 9.1 Absolute Neuts (auto) 21.2 H Neutrophils % 86.2 H Neutrophils % (Manual) 84.8 H Band Neutrophils % 0.0 Lymphocytes % 4.6 L Lymphocytes % (Manual) 4.0 L Monocytes % 9.0 Monocytes % (Manual) 5 Eosinophils % 0.0 Eosinophils % (Manual) 0.0 Basophils % 0.2 Basophils % (Manual) 0.0 Myelocytes % (Man) 0 Promyelocytes % (Man) 0 Blast Cells % (Manual) 0 Nucleated RBC % 0 Metamyelocytes 0 Platelet Estimate Normal Polychromasia 1+ D-Dimer 1678 H Anticoagulation Therapy Puncture Site ABG pH ABG pCO2 at Pt Temp ABG pO2 at Pt Temp ABG HCO3 ABG O2 Sat (Measured) ABG O2 Content ABG Base Excess Ki Test O2 Delivery Device Oxygen Flow Rate Vent Mode Vent Rate Mechanical Rate Pressure Support Vent Sodium 134 L Potassium 4.9 Chloride 95 L Carbon Dioxide 29 Anion Gap 9 BUN 20.4 H Creatinine 1.4 H Est GFR (CKD-EPI)AfAm 74.91 Est GFR (CKD-EPI)NonAf 64.63 Random Glucose 152 H Hemoglobin A1c % Lactic Acid Calcium 8.7 Phosphorus Magnesium Total Bilirubin 3.5 H AST 46 H ALT 54 Alkaline Phosphatase 122 H Creatine Kinase 141 Total Protein 8.0 Albumin 3.4 Urine Color Urine Appearance Urine pH Ur Specific [place] Urine Protein Urine Glucose (UA) Urine Ketones Urine Blood Urine Nitrite Urine Bilirubin Urine Urobilinogen Ur Leukocyte Esterase Urine WBC (Auto) Urine RBC (Auto) Urine Casts (Auto) U Pathogenic Cast Auto U Epithel Cells (Auto) Urine Bacteria (Auto) HIV-1 Antibody HIV Ag/Ab Interpret HIV-2 Antibody HIV 1&2 Ag/Ab, 4th Gen HIV 1&2 Antibody Screen HIV 1&2 Ab Final Interp HIV P24 Antigen Influenza A (Rapid) Influenza B (Rapid) 05/19/19 05/19/19 05/19/19 16:04 16:04 17:11 WBC RBC Hgb Hct MCV MCH MCHC RDW Plt Count MPV Absolute Neuts (auto) Neutrophils % Neutrophils % (Manual) Band Neutrophils % Lymphocytes % Lymphocytes % (Manual) Monocytes % Monocytes % (Manual) Eosinophils % Eosinophils % (Manual) Basophils % Basophils % (Manual) Myelocytes % (Man) Promyelocytes % (Man) Blast Cells % (Manual) Nucleated RBC % Metamyelocytes Platelet Estimate Polychromasia D-Dimer Anticoagulation Therapy Puncture Site ABG pH ABG pCO2 at Pt Temp ABG pO2 at Pt Temp ABG HCO3 ABG O2 Sat (Measured) ABG O2 Content ABG Base Excess Ki Test O2 Delivery Device Oxygen Flow Rate Vent Mode Vent Rate Mechanical Rate Pressure Support Vent Sodium Potassium Chloride Carbon Dioxide Anion Gap BUN Creatinine Est GFR (CKD-EPI)AfAm Est GFR (CKD-EPI)NonAf Random Glucose Hemoglobin A1c % Lactic Acid 2.1 H Calcium Phosphorus Magnesium Total Bilirubin AST ALT Alkaline Phosphatase Creatine Kinase Total Protein Albumin Urine Color Dk yellow Urine Appearance Turbid Urine pH 5.0 Ur Specific [place] 1.035 Urine Protein 3+ H Urine Glucose (UA) Negative Urine Ketones 1+ H Urine Blood 3+ H Urine Nitrite Positive H Urine Bilirubin 2+ H Urine Urobilinogen 2.0 Ur Leukocyte Esterase Trace Urine WBC (Auto) 4 Urine RBC (Auto) 5-10 Urine Casts (Auto) 22 U Pathogenic Cast Auto Positive U Epithel Cells (Auto) 1.4 Urine Bacteria (Auto) 1.5 HIV-1 Antibody HIV Ag/Ab Interpret HIV-2 Antibody HIV 1&2 Ag/Ab, 4th Gen HIV 1&2 Antibody Screen HIV 1&2 Ab Final Interp HIV P24 Antigen Influenza A (Rapid) Negative Influenza B (Rapid) Negative 05/19/19 05/19/19 05/19/19 18:31 23:01 23:01 WBC RBC Hgb Hct MCV MCH MCHC RDW Plt Count MPV Absolute Neuts (auto) Neutrophils % Neutrophils % (Manual) Band Neutrophils % Lymphocytes % Lymphocytes % (Manual) Monocytes % Monocytes % (Manual) Eosinophils % Eosinophils % (Manual) Basophils % Basophils % (Manual) Myelocytes % (Man) Promyelocytes % (Man) Blast Cells % (Manual) Nucleated RBC % Metamyelocytes Platelet Estimate Polychromasia D-Dimer Anticoagulation Therapy No Result Required. Puncture Site Right radial ABG pH 7.48 H ABG pCO2 at Pt Temp 34.0 L ABG pO2 at Pt Temp 72.3 L ABG HCO3 25.0 ABG O2 Sat (Measured) 94.6 L ABG O2 Content 18.1 ABG Base Excess 2.3 H Ki Test Positive O2 Delivery Device No Result Required. Oxygen Flow Rate No Vent Mode No Result Required. Vent Rate No Result Required. Mechanical Rate No Result Required. Pressure Support Vent No Result Required. Sodium Potassium Chloride Carbon Dioxide Anion Gap BUN Creatinine Est GFR (CKD-EPI)AfAm Est GFR (CKD-EPI)NonAf Random Glucose Hemoglobin A1c % Lactic Acid Calcium Phosphorus Magnesium Total Bilirubin AST ALT Alkaline Phosphatase Creatine Kinase Total Protein Albumin Urine Color Urine Appearance Urine pH Ur Specific [place] Urine Protein Urine Glucose (UA) Urine Ketones Urine Blood Urine Nitrite Urine Bilirubin Urine Urobilinogen Ur Leukocyte Esterase Urine WBC (Auto) Urine RBC (Auto) Urine Casts (Auto) U Pathogenic Cast Auto U Epithel Cells (Auto) Urine Bacteria (Auto) HIV-1 Antibody Cancelled HIV Ag/Ab Interpret Cancelled HIV-2 Antibody Cancelled HIV 1&2 Ag/Ab, 4th Gen Cancelled HIV 1&2 Antibody Screen Negative HIV 1&2 Ab Final Interp Cancelled HIV P24 Antigen Negative Influenza A (Rapid) Influenza B (Rapid) 05/20/19 05/20/19 05/20/19 05:50 05:50 05:50 WBC 26.0 H RBC 4.29 Hgb 13.6 Hct 40.2 MCV 93.6 MCH 31.6 MCHC 33.7 RDW 14.3 Plt Count 306 MPV 9.1 Absolute Neuts (auto) 23.0 H Neutrophils % 88.5 H Neutrophils % (Manual) 83.0 H Band Neutrophils % 1.0 Lymphocytes % 3.7 L Lymphocytes % (Manual) 2.0 L D Monocytes % 7.3 Monocytes % (Manual) 9 Eosinophils % 0.0 Eosinophils % (Manual) 0.0 Basophils % 0.5 Basophils % (Manual) 0.0 Myelocytes % (Man) 1 D Promyelocytes % (Man) 0 Blast Cells % (Manual) 0 Nucleated RBC % 0 Metamyelocytes 0 Platelet Estimate Normal Polychromasia 1+ D-Dimer Anticoagulation Therapy Puncture Site ABG pH ABG pCO2 at Pt Temp ABG pO2 at Pt Temp ABG HCO3 ABG O2 Sat (Measured) ABG O2 Content ABG Base Excess Ki Test O2 Delivery Device Oxygen Flow Rate Vent Mode Vent Rate Mechanical Rate Pressure Support Vent Sodium 134 L Potassium 3.8 Chloride 99 Carbon Dioxide 28 Anion Gap 7 L BUN 18.9 H Creatinine 1.3 Est GFR (CKD-EPI)AfAm 81.93 Est GFR (CKD-EPI)NonAf 70.69 Random Glucose 112 H Hemoglobin A1c % 5.7 Lactic Acid Calcium 7.7 L Phosphorus 2.8 Magnesium 2.7 H Total Bilirubin 5.2 H AST 60 H ALT 74 H Alkaline Phosphatase 107 Creatine Kinase Total Protein 6.7 Albumin 2.6 L Urine Color Urine Appearance Urine pH Ur Specific [place] Urine Protein Urine Glucose (UA) Urine Ketones Urine Blood Urine Nitrite Urine Bilirubin Urine Urobilinogen Ur Leukocyte Esterase Urine WBC (Auto) Urine RBC (Auto) Urine Casts (Auto) U Pathogenic Cast Auto U Epithel Cells (Auto) Urine Bacteria (Auto) HIV-1 Antibody HIV Ag/Ab Interpret HIV-2 Antibody HIV 1&2 Ag/Ab, 4th Gen HIV 1&2 Antibody Screen HIV 1&2 Ab Final Interp HIV P24 Antigen Influenza A (Rapid) Influenza B (Rapid) 05/20/19 07:38 WBC RBC Hgb Hct MCV MCH MCHC RDW Plt Count MPV Absolute Neuts (auto) Neutrophils % Neutrophils % (Manual) Band Neutrophils % Lymphocytes % Lymphocytes % (Manual) Monocytes % Monocytes % (Manual) Eosinophils % Eosinophils % (Manual) Basophils % Basophils % (Manual) Myelocytes % (Man) Promyelocytes % (Man) Blast Cells % (Manual) Nucleated RBC % Metamyelocytes Platelet Estimate Polychromasia D-Dimer Anticoagulation Therapy Puncture Site ABG pH ABG pCO2 at Pt Temp ABG pO2 at Pt Temp ABG HCO3 ABG O2 Sat (Measured) ABG O2 Content ABG Base Excess Ki Test O2 Delivery Device Oxygen Flow Rate Vent Mode Vent Rate Mechanical Rate Pressure Support Vent Sodium Potassium Chloride Carbon Dioxide Anion Gap BUN Creatinine Est GFR (CKD-EPI)AfAm Est GFR (CKD-EPI)NonAf Random Glucose Hemoglobin A1c % Lactic Acid 1.5 Calcium Phosphorus Magnesium Total Bilirubin AST ALT Alkaline Phosphatase Creatine Kinase Total Protein Albumin Urine Color Urine Appearance Urine pH Ur Specific [place] Urine Protein Urine Glucose (UA) Urine Ketones Urine Blood Urine Nitrite Urine Bilirubin Urine Urobilinogen Ur Leukocyte Esterase Urine WBC (Auto) Urine RBC (Auto) Urine Casts (Auto) U Pathogenic Cast Auto U Epithel Cells (Auto) Urine Bacteria (Auto) HIV-1 Antibody HIV Ag/Ab Interpret HIV-2 Antibody HIV 1&2 Ag/Ab, 4th Gen HIV 1&2 Antibody Screen HIV 1&2 Ab Final Interp HIV P24 Antigen Influenza A (Rapid) Influenza B (Rapid) Physical Exam: NAd, quiet. MMM. icteric sclera. round equal pupils, reactive to light . no facial droop. CV: RRR, no mRG Lungs: scattered wheezes. no crackles . Good air entry Abd: sfot, NT, ND , Neg Lara's . nl BS Ext: No edema or erythema or rash Imaging: CT of c/A/P image reviewed, report is pending cxray image and report is reviewed. Assessment/Plan: 34 y/o gentleman with h/o Asthma, and previous PNA, who presented with fever , chills, and SOB with CP. He was found to have b/l PNA 1- Sepsis due to B/l PNA. L upper lung mass like density might represent an abscess or cavitary lesion. there is R sided pleural effusion on CT scan ( report pending ) He is clinically better, and hemodynamically stable. - cont vanco and zosyn for now. ID conuslt pending - will obtain legionella Urine Ag due to LFTS abnormality . R/O legionella. - send blood cx - AFB x 3 . - Air born isolation - Pulm consult pending. ? diagnostic thoracentesis - QTF gold pending - HIV neg - order IVF NS @ 125 cc/hr 2- VIDAL : due to volume depletion and sepsis. Cr improved with IVF. BUN still elevated - start IVF - DC renal US 3- TRansaminits : likely due to sepsis. CT scan image reviewed( report pendig ) , gall bladder wall is not thick and with no pericystic edema. I doubt primary biliary process in his case. No recent drugs or meds. - will order direct bili . If pattern is obstructive, then will consult GI. - RUQ US pending - legionela Ag 4- Prediabetes 5- H/o Asthma: add Nebs . Monitor . Visit type - Emergency Visit Emergency Visit: Yes ED Registration Date: 05/19/19 Care time: The patient presented to the Emergency Department on the above date and was hospitalized for further evaluation of their emergent condition. - New Patient This patient is new to me today: Yes Date on this admission: 05/20/19 - Critical Care Critical Care patient: No
--- NOTE | 2019-05-20 10:51 | CON.PULM ---
Consult Consult Specialty:: PULMONARY Referred by:: PMD Reason for Consultation:: PNEUMONIA - History of Present Illness Chief Complaint: COUGH/FEVER/SOB History of Present Illness: The patient is a 34 year old male,smokes marijuana but does not vape, non- cigarette smoker with a significant PMH of asthma (never hospitalized, not on controller meds, albuterol PRN) who presents to the emergency department with 2 weeks of a productive cough and shortness of breath, which progressed into right pleuritic paraspinal thoracic pain and right sided chest pain over the last 3 days. Patient notes that his chest pain and thoracic back pain are aggravated by breathing and coughing. Patient states that what finally prompted him into coming into the ED was seeing dark orange urine today. Patient also endorses 4 episodes of nausea and vomiting last week, but none this week. He also notes a 20 pound weight loss in the last 2 weeks. Pt's partner at the bedside was here in the hospital 2 weeks ago for pneumonia, and pt was with her in the hospital almost everyday. Denies calf pain, swelling, Denies recent travel. Denies hx PNA or similar sxs as today. No hx vaping. No exposure to homeless, nursing home population. Works in [employer] and has not been exposed to potentially contaminated water supplies.. 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 No: COPD, Pneumonia Gastrointestinal: No: Ascites, Cancer Hepatobiliary: No: Cirrhosis Renal/: No: Renal Failure Heme/Onc: No: Anemia Infectious Disease: No: HIV Psych: Yes: Other (smokes marijuana) Musculoskeletal: No: Bursitis Endocrine: No: Diabetes Mellitus - Past Surgical History Past Surgical History: Yes: Tonsillectomy - Alcohol/Substance Use Hx Alcohol Use: No History of Substance Use: reports: Marijuana - Social History ADL: Independent Place of : [facility] History of Recent Travel: No Home Medications - Allergies Allergies/Adverse Reactions: Allergies Allergy/AdvReac Type Severity Reaction Status Date / Time No Known Allergies Allergy Verified 05/19/19 14:14 - Home Medications Home Medications: Ambulatory Orders Albuterol Sulfate Inhaler - [Ventolin Hfa Inhaler -] 1 - 2 inh PO QID PRN 11/30/ 19 Family Medical History Family History: Unremarkable Review of Systems - Review of Systems Constitutional: reports: Fever, Loss of Appetite, Unintentional Wgt. Loss, Weakness Eyes: denies: Recent Change in Vision HENT: denies: Difficult Swallowing Neck: denies: Decreased ROM Cardiovascular: reports: Chest Pain Respiratory: reports: Cough, Exercise Intolerance, SOB, SOB on Exertion, Wheezing. denies: Hemoptysis Gastrointestinal: denies: Abdominal Pain Genitourinary: denies: Burning Neurological: reports: No Symptoms Endocrine: reports: No Symptoms Hematology/Lymphatic: reports: No Symptoms Physical Exam Vital Sings: Vital Signs Temperature 98.3 F 05/20/19 06:38 Pulse Rate 103 H 05/20/19 06:38 Respiratory Rate 18 05/20/19 06:38 Blood Pressure 136/68 05/20/19 06:38 O2 Sat by Pulse Oximetry (%) 92 L 05/20/19 06:38 Constitutional: Yes: Anxious Eyes: Yes: EOM Intact HENT: Yes: Normocephalic Neck: Yes: Trachea Midline Cardiovascular: Yes: Tachycardia, S1, S2 Respiratory: Yes: Rales, Rhonchi, Wheezes ...Inspection: Yes: WNL Gastrointestinal: Yes: Normal Bowel Sounds. No: Hematemesis, Hepatomegaly, Splenomegaly Renal/: Yes: WNL Breast(s): Yes: WNL Musculoskeletal: Yes: WNL Extremities: Yes: WNL Labs: CBC, BMP 05/20/19 05:50 05/20/19 05:50 ABG Results ABG pH 7.48 (7.35-7.45) H 05/19/19 18:31 ABG pCO2 at Pt Temp 34.0 mmHg (35-45) L 05/19/19 18:31 ABG pO2 at Pt Temp 72.3 mmHg (80-100) L 05/19/19 18:31 ABG HCO3 25.0 mmol/L (22-27) 05/19/19 18:31 ABG O2 Sat (Measured) 94.6 % (95-98) L 05/19/19 18:31 ABG O2 Content 18.1 % vol 05/19/19 18:31 ABG Base Excess 2.3 meq/l (-2-2) H 05/19/19 18:31 Imaging - Results Chest X-ray: Report Reviewed, Image Reviewed Cat Scan: Report Reviewed, Image Reviewed Assessment/Plan LEFT UPPER LOBE PATCHY CAVITARY INFILTRATE RLL LOBE THICK WALLED CAVITARY LESION WITH LOCULATED RIGHT PLEURAL EFFUSION JAUNDICE/ELEVATED LFT'S WEIGHT LOSS/ B. ASTHMA SPUTUM AFB x 3 QUANTIFERON GOLD RESP ISOLATION HERNANDEZ CULTURE/BLOOD /SPUTUM/URINARY ANTIGENS BROAD SPECTRUM ANTIOBIOTICS TO COVER ATYPICALS AND ANAEROBIC ORGANISMS WOULD HOLD ANTI-TB MEDS UNTIL SPUTUMS ARE CONFIRMATORY IN VIEW OF RISING BILI/ LFT'S O2/BRONCHODILATORS NEEDED/HOLD STEROIDS FOR NOW CHECK HIV WILL LIKELY NEED TO R/O EMPYEMA CONSIDER IR THORACENTESIS/ PATIENT IS PRODUCING SPUTUM AND DOES NOT REQUIRE A BRONCHOSCOPY AT THIS TIME Ronda SIMENTAL MD
--- NOTE | 2019-05-20 12:26 | CON.ID ---
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 No: COPD, Pneumonia Gastrointestinal: No: Ascites, Cancer Hepatobiliary: No: Cirrhosis Renal/: No: Renal Failure Infectious Disease: No: HIV Psych: Yes: Other (smokes marijuana) Musculoskeletal: No: Bursitis Endocrine: No: Diabetes Mellitus - Past Surgical History Past Surgical History: Yes: Tonsillectomy - Alcohol/Substance Use Hx Alcohol Use: No History of Substance Use: reports: Marijuana - Smoking History Smoking history: Current some day smoker - Social History ADL: Independent History of Recent Travel: No Home Medications - Allergies Allergies/Adverse Reactions: Allergies Allergy/AdvReac Type Severity Reaction Status Date / Time No Known Allergies Allergy Verified 05/19/19 14:14 - Home Medications Home Medications: Ambulatory Orders Albuterol Sulfate Inhaler - [Ventolin Hfa Inhaler -] 1 - 2 inh PO QID PRN Physical Exam Vital Signs: Vital Signs Temperature 98.3 F 05/20/19 06:38 Pulse Rate 103 H 05/20/19 06:38 Respiratory Rate 18 05/20/19 06:38 Blood Pressure 136/68 05/20/19 06:38 O2 Sat by Pulse Oximetry (%) 92 L 05/20/19 06:38 Labs: CBC, BMP 05/20/19 05:50 05/20/19 05:50
[2019-05-20] MEDS ORDERED: HEPARIN NA (PORCINE) 5,000 UNITS/ML 1ML VIAL SQ ONE (17:32)
[2019-05-20] MEDS ORDERED: ALBUTEROL SO4 2.5/IPRATROPIUM 0.5 INH SOL 3 ML VIAL.NEB. NEB ONE (17:51)
[2019-05-20] MEDS ORDERED: VANCOMYCIN 1 GRAM (PRE-DOCKED) 1,000 MG/250 ML BAG IVPB ONE (17:51)
[2019-05-20] MEDS ORDERED: HEPARIN NA (PORCINE) 5,000 UNITS/ML 1ML VIAL ONE (17:51)
[2019-05-20] MEDS: VANCOMYCIN 1 GRAM (PRE-DOCKED) 1,000 MG/250 ML BAG IVPB SCH (18:07)
[2019-05-20] MEDS: ALBUTEROL SO4 0.083% IH SOL 2.5 MG/3 ML VIAL.NEB. NEB SCH ×2 (18:07→20:41)
[2019-05-20] MEDS ORDERED: PIPERACILLIN/TAZOB 3.375 GM 3.375 GM/50 ML BAG IVPB ONE (20:30)
[2019-05-20] MEDS: PIPERACILLIN/TAZOB 3.375 GM 3.375 GM in DEXTROSE 5%-WATER - 50 ML IVPB SCH (20:41)
[2019-05-20] MEDS ORDERED: PIPERACILLIN/TAZOB 4.5 GM 4.5 GM in DEXTROSE 5%-WATER 100 ML IVPB SCH (21:00)
[2019-05-21] MEDS ORDERED: PIPERACILLIN/TAZOB 3.375 GM 3.375 GM/50 ML BAG IVPB ONE (02:16)
[2019-05-21] MEDS: PIPERACILLIN/TAZOB 3.375 GM 3.375 GM in DEXTROSE 5%-WATER - 50 ML IVPB SCH ×3 (02:23→22:01)
[2019-05-21] MEDS ORDERED: VANCOMYCIN 1 GRAM (PRE-DOCKED) 1,000 MG/250 ML BAG IVPB ONE ×2 (04:23→18:32)
[2019-05-21] MEDS ORDERED: ALBUTEROL SO4 0.083% IH SOL 2.5 MG/3 ML VIAL.NEB. NEB ONE ×2 (04:32→04:46)
[2019-05-21] MEDS: VANCOMYCIN 1 GRAM (PRE-DOCKED) 1,000 MG/250 ML BAG IVPB SCH ×2 (04:34→18:44)
[2019-05-21] MEDS ORDERED: VANCOMYCIN 1 GRAM (PRE-DOCKED) 1,000 MG/250 ML BAG IVPB SCH (05:00)
[2019-05-21 06:18] LABS: BASO % 0.4 % (0-2.0); EOS % 0.2 % (0-4.5); HEMATOCRIT 38.6 % (35.4-49); HEMOGLOBIN 12.9 GM/dL (11.7-16.9); LYMPH % 5.5 % (8-40); MCH 31.2 pg (25.7-33.7); MCHC 33.5 g/dl (32.0-35.9); MEAN CELL VOLUME 93.3 fl (80-96); MEAN PLT VOLUME 8.8 fl (7.5-11.1); MONO % 8.4 % (3.8-10.2); NEUT % 85.5 % (42.8-82.8); PLATELET COUNT 314 K/MM3 (134-434); RBC 4.14 M/mm3 (4.00-5.60); RDW 14.4 % (11.9-15.9); WHITE BLOOD COUNT 22.6 K/mm3 (4.0-10.0)
[2019-05-21 06:54] LABS: ALBUMIN 2.6 g/dl (3.4-5.0); BILIRUBIN,DIRECT 2.4 mg/dL (0.0-0.2); BILIRUBIN,TOTAL 3.1 mg/dL (0.2-1); BLOOD UREA NITROGEN 17.1 mg/dL (7-18); CALCIUM 7.9 mg/dL (8.5-10.1); CREATININE 1.1 mg/dL (0.55-1.3); POTASSIUM 4.1 mmol/L (3.5-5.1); TOT PROT 6.9 g/dl (6.4-8.2)
[2019-05-21] MEDS: SODIUM CHLORIDE 1,000 ML IV SCH (08:47)
[2019-05-21] MEDS: ALBUTEROL SO4 0.083% IH SOL 2.5 MG/3 ML VIAL.NEB. NEB SCH ×3 (08:47→20:18)
[2019-05-21 09:18] LABS: ANISOCYTOSIS 0; MACROCYTOSIS 0; PLATELET ESTIMATE NORMAL
[2019-05-21 09:25] LABS: INR 1.56 (0.83-1.09); PROTHROMBIN TIME (PATIENT) 18.5 SEC (9.7-13.0)
--- NOTE | 2019-05-21 10:46 | EKG ---
Test Reason : Blood Pressure : / mmHG Vent. Rate : 145 BPM Atrial Rate : 145 BPM P-R Int : 128 ms QRS Dur : 082 ms QT Int : 272 ms P-R-T Axes : 089 032 063 degrees QTc Int : 422 ms SINUS TACHYCARDIA POSSIBLE LEFT ATRIAL ENLARGEMENT BORDERLINE ECG NO PREVIOUS ECGS AVAILABLE Confirmed by TANA MACARIO MD ([id number]) on 05/21/2019 10:46:21 AM Referred By: Confirmed By:TANA MACARIO MD
[2019-05-21 12:29] LABS: COCAINE, UR NEGATIVE ng/ml (CUTOFF=300); METHADONE, UR NEGATIVE ng/ml (CUTOFF=300); OPIATES, URI NEGATIVE ng/ml (CUTOFF=300); PHENCYCLIDINE,URINE NEGATIVE ng/ml (CUTOFF=25); URINE AMPHETAMINES NEGATIVE ng/ml (CUTOFF=500); URINE BARBITURATES NEGATIVE ng/ml (CUTOFF=200); URINE BENZODIAZEPINES NEGATIVE ng/ml (CUTOFF=200)
--- NOTE | 2019-05-21 12:46 | PN ---
Progress Note (short form) - Note Progress Note: PULMONARY States he feels slightly better. Cough with dark green sputum. No further fevers. Sputum growing staph species. Vital Signs Period Temp Pulse Resp BP Sys/Fontana Pulse Ox Last 24 Hr 98.2 F 95-107 17-20 112-129/75-78 92-100 Gen: mildly toxic appearing Heart: RRR Lung: scattered wheezes Abd: soft, nontender Ext: no edema CBC, BMP 05/21/19 05:30 05/21/19 05:30 Active Medications Albuterol Sulfate (Ventolin 0.083% Nebulizer Soln -) 1 amp NEB Q4H PRN PRN Reason: SHORT OF BREATH/WHEEZING Albuterol Sulfate (Ventolin 0.083% Nebulizer Soln -) 1 amp NEB RTID ASCENCION Last Admin: 05/21/19 08:47 Dose: 1 amp Sodium Chloride (Normal Saline -) 1,000 mls @ 125 mls/hr IV ASDIR ASCENCION Last Admin: 05/21/19 08:47 Dose: 125 mls/hr Vancomycin HCl (Vancomycin (Pre-Docked)) 1,000 mg in 250 mls @ 166.667 mls/hr IVPB Q12H ASCENCION; Protocol Last Admin: 05/21/19 04:34 Dose: 166.667 mls/hr Piperacillin Sod/Tazobactam (Sod 3.375 gm/ Dextrose) 50 mls @ 100 mls/hr IVPB Q8H-IV ASCENCION; Protocol Last Admin: 05/21/19 09:06 Dose: 100 mls/hr A/P Pneumonia Cavitary Lesions Sepsis Acute Kidney Injury Elevated LFTs Asthma - continue antibiotics per ID - f/u cultures - quantiferon, fungitell - inhaled bronchodilators - O2 to keep SpO2 >90% - IVF - monitor urine output, creatinine - trend LFTs - DVT prophylaxis - can do bronchoscopy/BAL if sputum studies unrevealing
--- NOTE | 2019-05-21 14:25 | PN ---
Progress Note, Physician History of Present Illness: continues to still be sob plan for mri of abd today does not feel well cough with dark green sputum no hemoptysis - Current Medication List Current Medications: Active Medications Albuterol Sulfate (Ventolin 0.083% Nebulizer Soln -) 1 amp NEB Q4H PRN PRN Reason: SHORT OF BREATH/WHEEZING Albuterol Sulfate (Ventolin 0.083% Nebulizer Soln -) 1 amp NEB RTID ASCENCION Last Admin: 05/21/19 14:03 Dose: 1 amp Sodium Chloride (Normal Saline -) 1,000 mls @ 125 mls/hr IV ASDIR ASCENCION Last Admin: 05/21/19 08:47 Dose: 125 mls/hr Vancomycin HCl (Vancomycin (Pre-Docked)) 1,000 mg in 250 mls @ 166.667 mls/hr IVPB Q12H ASCENCION; Protocol Last Admin: 05/21/19 04:34 Dose: 166.667 mls/hr Piperacillin Sod/Tazobactam (Sod 3.375 gm/ Dextrose) 50 mls @ 100 mls/hr IVPB Q8H-IV ASCENCION; Protocol Last Admin: 05/21/19 09:06 Dose: 100 mls/hr - Objective Vital Signs: Vital Signs Temperature 98.2 F 05/21/19 09:17 Pulse Rate 107 H 05/21/19 09:17 Respiratory Rate 17 05/21/19 09:17 Blood Pressure 112/75 05/21/19 09:17 O2 Sat by Pulse Oximetry (%) 92 L 05/21/19 09:17 Constitutional: Yes: Calm, Mild Distress Neck: Yes: Supple, Trachea Midline Cardiovascular: Yes: Regular Rate and Rhythm Respiratory: Yes: Regular, CTA Bilaterally Gastrointestinal: Yes: Normal Bowel Sounds, Soft Musculoskeletal: Yes: WNL Extremities: Yes: WNL Neurological: Yes: Alert, Oriented Psychiatric: Yes: Alert, Oriented Labs: CBC, BMP 05/21/19 05:30 05/21/19 05:30 INR, PTT INR 1.56 (0.83-1.09) H 05/21/19 08:50 Assessment/Plan Pneumonia Cavitary Lesions Sepsis Acute Kidney Injury Elevated LFTs Asthma r/o malignancy plan continue abx monitor vanco trough echo needs to be done await for all results aspiration resp support
--- NOTE | 2019-05-21 14:45 | PN ---
Teaching Attending Note Name of Resident: Vinayak Ashley ATTENDING PHYSICIAN STATEMENT I saw and evaluated the patient. I reviewed the resident's note and discussed the case with the resident. I agree with the resident's findings and plan as documented. SUBJECTIVE: No fever or chills. No VALENCIA . He feels better , but still tired, and weak and with productive cough . OBJECTIVE: NAd, quiet. MMM. icteric sclera CV: RRR, no MRG Lungs:fine crackles in mid R lung field Abd: soft, NT, ND, Neg Lara's. nl BS Ext: No edema or erythema or rash Assessment/Plan: 34 y/o gentleman with h/o Asthma, and previous PNA, who presented with fever , chills, and SOB with CP. He was found to have b/l PNA 1- Sepsis due to B/l staph PNA with lung abscess and suspected R sided empyema. - cont avnco and zosyn - sputum cx reviewed. will wait for ID and sensitivity - get Echo , r/o endocarditis - vanco trough this afternoon - ABF in sputum - f/u QTF - Spoke to Sean Frank, and case was w/d Bear. placing a CT on R side might carry the risk of a fistula due to connection to bronchial tree. if needed VATS can be done. will repeat cxray tomorrow - cont IVF 2- VIDAL : due to volume depletion and sepsis. improved with IVF 3- Transaminits : Mixed picture, hepatocellular and cholestatic . likely due to sepsis. Bili improved - Tylenol, drug testing, and salicylate neg - Doubt any obstruction , but get MRCP due to mildly dilated CBD on US - Case was d/w Dr. Yanez in a consult last night 4- Prediabetes 5- H/o Asthma: add Nebs . Monitor . start DVT px
--- NOTE | 2019-05-21 15:00 | PN ---
Physical Exam: SUBJECTIVE: Patient seen and examined. Pt still reports weakness, lack of improvement, coughing with productive sputum and worsening rib/back pain. Pt had no overnight events. Denies f/c/n/v/d/chest pain/sob OBJECTIVE: Vital Signs Period Temp Pulse Resp BP Sys/Fontana Pulse Ox Last 24 Hr 98.2 F 95-107 17-20 112-129/75-78 92-100 GENERAL: The patient is awake, alert, and fully oriented, in no acute distress. HEAD: Normal with no signs of trauma. EYES: PERRL, extraocular movements intact, sclera mildly icteric, ENT: oropharynx clear without exudates, moist mucous membranes. NECK: Trachea midline, full range of motion, supple. LUNGS: Breath sounds equal, clear to auscultation bilaterally, Mild inspiratory wheezes, mild crackles, Chest: Tenderness to palpation on the right lateral aspect of the ribs HEART: Regular rate and rhythm, S1, S2 without murmur, rub or gallop. ABDOMEN: Soft, nontender, nondistended, normoactive bowel sounds, no guarding, Back: Tenderness to palpation on the right posteriorly EXTREMITIES: 2+ pulses, warm, well-perfused, no edema. NEUROLOGICAL: Cranial nerves II through XII grossly intact. PSYCH: Normal mood, normal affect. SKIN: Warm, dry, normal turgor, no rashes Laboratory Results - last 24 hr CBC,CMP WBC 22.6 K/mm3 (4.0-10.0) H 05/21/19 05:30 RBC 4.14 M/mm3 (4.00-5.60) 05/21/19 05:30 Hgb 12.9 GM/dL (11.7-16.9) 05/21/19 05:30 Hct 38.6 % (35.4-49) 05/21/19 05:30 MCV 93.3 fl (80-96) 05/21/19 05:30 MCH 31.2 pg (25.7-33.7) 05/21/19 05:30 MCHC 33.5 g/dl (32.0-35.9) 05/21/19 05:30 RDW 14.4 % (11.9-15.9) 05/21/19 05:30 Plt Count 314 K/MM3 (134-434) 05/21/19 05:30 MPV 8.8 fl (7.5-11.1) 05/21/19 05:30 Absolute Neuts (auto) 19.3 K/mm3 (1.5-8.0) H 05/21/19 05:30 Neutrophils % 85.5 % (42.8-82.8) H 05/21/19 05:30 Neutrophils % (Manual) 76.0 % (42.8-82.8) 05/21/19 05:30 Band Neutrophils % 2.0 % 05/21/19 05:30 Lymphocytes % 5.5 % (8-40) L D 05/21/19 05:30 Lymphocytes % (Manual) 4.0 % (8-40) L D 05/21/19 05:30 Monocytes % 8.4 % (3.8-10.2) 05/21/19 05:30 Monocytes % (Manual) 13 % (3.8-10.2) H 05/21/19 05:30 Eosinophils % 0.2 % (0-4.5) D 05/21/19 05:30 Eosinophils % (Manual) 1.0 % (0-4.5) D 05/21/19 05:30 Basophils % 0.4 % (0-2.0) 05/21/19 05:30 Basophils % (Manual) 0.0 % (0-2.0) 05/21/19 05:30 Myelocytes % (Man) 1 % (0-2) 05/21/19 05:30 Promyelocytes % (Man) 0 % (0-2) 05/21/19 05:30 Blast Cells % (Manual) 0 % (0-0) 05/21/19 05:30 Nucleated RBC % 0 % (0-0) 05/21/19 05:30 Metamyelocytes 0 % (0-2) 05/21/19 05:30 Hypochromia 0 05/21/19 05:30 Platelet Estimate Normal 05/21/19 05:30 Polychromasia 1+ 05/21/19 05:30 Poikilocytosis 0 05/21/19 05:30 Anisocytosis 0 05/21/19 05:30 Microcytosis 0 05/21/19 05:30 Macrocytosis 0 05/21/19 05:30 Spherocytes 1+ 05/21/19 05:30 Sodium 134 mmol/L (136-145) L 05/21/19 05:30 Potassium 4.1 mmol/L (3.5-5.1) 05/21/19 05:30 Chloride 99 mmol/L (98-107) 05/21/19 05:30 Carbon Dioxide 28 mmol/L (21-32) 05/21/19 05:30 Anion Gap 6 MMOL/L (8-16) L 05/21/19 05:30 BUN 17.1 mg/dL (7-18) 05/21/19 05:30 Creatinine 1.1 mg/dL (0.55-1.3) 05/21/19 05:30 Est GFR (CKD-EPI)AfAm 100.27 05/21/19 05:30 Est GFR (CKD-EPI)NonAf 86.51 05/21/19 05:30 Random Glucose 147 mg/dL (74-106) H 05/21/19 05:30 Hemoglobin A1c % 5.7 % (4.2-6.3) 05/20/19 05:50 Lactic Acid 1.5 mmol/L (0.4-2.0) 05/20/19 07:38 Calcium 7.9 mg/dL (8.5-10.1) L 05/21/19 05:30 Phosphorus 2.8 mg/dL (2.5-4.9) 05/20/19 05:50 Magnesium 2.7 mg/dL (1.8-2.4) H 05/20/19 05:50 Total Bilirubin 3.1 mg/dL (0.2-1) H D 05/21/19 05:30 Direct Bilirubin 2.4 mg/dL (0.0-0.2) H 05/21/19 05:30 AST 58 U/L (15-37) H 05/21/19 05:30 ALT 80 U/L (13-61) H 05/21/19 05:30 Alkaline Phosphatase 119 U/L (45-117) H 05/21/19 05:30 Creatine Kinase 141 U/L (26-308) 05/19/19 15:05 Total Protein 6.9 g/dl (6.4-8.2) 05/21/19 05:30 Albumin 2.6 g/dl (3.4-5.0) L 05/21/19 05:30 Active Medications Current Medications Albuterol Sulfate (Ventolin 0.083% Nebulizer Soln -) 1 amp NEB Q4H PRN PRN Reason: SHORT OF BREATH/WHEEZING Albuterol Sulfate (Ventolin 0.083% Nebulizer Soln -) 1 amp NEB RTID ASCENCION Last Admin: 05/21/19 14:03 Dose: 1 amp Sodium Chloride (Normal Saline -) 1,000 mls @ 125 mls/hr IV ASDIR ASCENCION Last Admin: 05/21/19 08:47 Dose: 125 mls/hr Vancomycin HCl (Vancomycin (Pre-Docked)) 1,000 mg in 250 mls @ 166.667 mls/hr IVPB Q12H ASCENCION; Protocol Last Admin: 05/21/19 04:34 Dose: 166.667 mls/hr Piperacillin Sod/Tazobactam (Sod 3.375 gm/ Dextrose) 50 mls @ 100 mls/hr IVPB Q8H-IV ASCENCION; Protocol Last Admin: 05/21/19 09:06 Dose: 100 mls/hr Home Medications Medication Instructions Recorded Albuterol Sulfate Inhaler - 1 - 2 inh PO QID PRN 05/19/19 [Ventolin Hfa Inhaler -] Microbiology 05/20/19 12:13 Sputum - Expectorated Sputum Culture - Preliminary Yeast Like Organism 05/19/19 16:09 Sputum - Expectorated Sputum Culture - Preliminary Staphylococcus Species 05/19/19 17:11 Urine - Urine Clean Catch Urine Culture - Final NO GROWTH OBTAINED 05/20/19 09:55 Sputum - Expectorated AFB Smear Concentration - Preliminary 05/20/19 09:55 Sputum - Expectorated Mycobacterial Culture - Preliminary 05/19/19 16:04 Blood - Peripheral Venous Blood Culture - Preliminary NO GROWTH OBTAINED AFTER 24 HOURS, INCUBATION TO CONTINUE FOR 4 DAYS. 05/19/19 16:04 Blood - Peripheral Venous Blood Culture - Preliminary NO GROWTH OBTAINED AFTER 24 HOURS, INCUBATION TO CONTINUE FOR 4 DAYS. 05/20/19 12:13 Urine - Urine Clean Catch Legionella Antigen - Final 05/20/19 12:13 Urine - Urine Clean Catch Streptococcus pneumoniae Antigen ( M - Final ASSESSMENT/PLAN: 34 y/o M, pmh of asthma presents w/ SOB and greenish productive cough of 1 week duration that started spontaneously and was associated with generalized weakness , decrease in appetite, 20b weight loss and right sided rib pain likely 2/2 b/l multifocal pneumonia #Sepsis likely 2/2 to Pneumonia must r/o TB in the setting of 20Ib weight loss, generalized weakness, decreased appetite, CT chest with cavitary lesions Other causes to consider include necrotizing bacterial multifocal pneumonia caused by staph aureus or pseudomonas, aspergillosis or malignancy White count remains elevated, lactic acid levels normalized, HIV neg, cont vanc and zosyn Sputum Cx received- will wait for ID recommendations- yeast like organism and streptococcus F/u ECHO to r/o endocarditis Vanc trough f/u Pulmonary consulted appreciated- will consider bronchoscopy/BAL if result of tests are unrevealing. Airborne isolation- till TB is r/o Quantiferon for TB- pending #Empyema 2/2 PNA d/w Dr. Mahan, he said there is no need for IR thorococentesis, Empyema is present, risks and complications are high if chest tube placed due to fistula formation to bronchial tree Will f/u r/p CXR for improvement of empyema Will consider VATs if absolutely necessary #Transaminits- appears to be a mix of cholestatic and hepatocellular cause T-bili and ALP improved, trending down UCx neg for legionella MRCP for dilated CBD, obstruction unlikely but need to r/o- will f/u results Salicylates negative, acetaminophen levels normal #Asthma Albuterol as need NC 2L if desats or sob- place on BiPaP #DVT ppx scds b/l FEN Fluids at 125 monitor lytes regular diet Dispo: f/u Cx in am, cont abx, f/u Quantiferon test, f/u Vanc trough Visit type - Emergency Visit Emergency Visit: Yes ED Registration Date: 05/19/19 Care time: The patient presented to the Emergency Department on the above date and was hospitalized for further evaluation of their emergent condition. - New Patient This patient is new to me today: Yes Date on this admission: 05/21/19 - Critical Care Critical Care patient: No - Discharge Referral Referred to [facility] Med [facility] No ATTENDING PHYSICIAN STATEMENT I saw and evaluated the patient. I reviewed the resident's note and discussed the case with the resident. I agree with the resident's findings and plan as documented. SUBJECTIVE: OBJECTIVE: ASSESSMENT AND PLAN:
--- NOTE | 2019-05-21 16:10 | ECHO ---
Name: AGATAMONICANY Exam:Adult Echocardiogram Study Date: 05/21/2019 03:39 PM Age: 34 yrs Reason For Study: Sepsis Height: 71 in Weight: 235 lb BSA: 2.3 m2 MMode/2D Measurements & Calculations IVSd: 0.99 cm Ao root diam: 2.9 cm LVIDd: 4.8 cm LA dimension: 3.5 cm LVIDs: 3.3 cm LVPWd: 0.80 cm LVPWs: 1.1 cm EDV(Teich): 108.4 ml ESV(Teich): 43.1 ml LVOT diam: 2.0 cm RV S Ant: 16.2 cm/sec Doppler Measurements & Calculations MV E max ant: 59.7 cm/sec Ao V2 max: 207.2 cm/sec MV A max ant: 76.0 cm/sec Ao max P.2 mmHg MV E/A: 0.79 MV dec time: 0.11 sec REGIS(V,D): 2.1 cm2 LV V1 max P.0 mmHg TR max ant: 268.8 cm/sec LV V1 max: 141.7 cm/sec TR max P.9 mmHg PA V2 max: 161.5 cm/sec Med Peak E' Ant: 9.0 cm/sec PA max P.5 mmHg Med E/e': 6.7 Lat Peak E' Ant: 15.2 cm/sec Lat E/e': 3.9 Procedure A complete two-dimensional transthoracic echocardiogram was performed (2D, M-mode, Doppler and color flow Doppler). Technically limited study. Left Ventricle The left ventricle is normal in size. Left ventricular systolic function is normal. Ejection Fraction = 60- 65%. No regional wall motion abnormalities noted. Right Ventricle The right ventricle is normal size. The right ventricular systolic function is normal. RV systolic TD I is 16 cm/s. Atria The left atrial size is normal. Right atrial size is normal. Mitral Valve The mitral valve is normal in structure and function. There is no mitral regurgitation noted. Tricuspid Valve The tricuspid valve is normal in structure and function. There is mild tricuspid regurgitation. Pulmo nary artery systolic pressure is at least 32 mmHg if RA pressure is assumed 3 mmHg. Aortic Valve There is mild aortic sclerosis.;. No aortic regurgitation is present. Pulmonic Valve The pulmonic valve is not well visualized. Great Vessels The aortic root is normal size. Pericardium/Pleura There is no pericardial effusion. Interpretation Summary Technically limited study The left ventricle is normal in size. Left ventricular systolic function is normal. No regional wall motion abnormalities noted. Ejection Fraction = 60-65%. The right ventricular systolic function is normal. The left atrial size is normal. Right atrial size is normal. There is mild tricuspid regurgitation. Pulmonary artery systolic pressure is at least 32 mmHg if RA pressure is assumed 3 mmHg There is mild aortic sclerosis. There is no pericardial effusion. Manas Hernandez MD 05/21/2019 04:10 PM
[2019-05-21] MEDS ORDERED: HEPARIN NA (PORCINE) 5,000 UNITS/ML 1ML VIAL ONE (18:31)
[2019-05-21] MEDS: HEPARIN NA (PORCINE) 5,000 UNITS/ML 1ML VIAL SQ SCH ×2 (18:44→21:14)
[2019-05-21] MEDS ORDERED: ACETAMINOPHEN 325 MG TABLET (FP) PO ONE (19:59)
[2019-05-21] MEDS ORDERED: PIPERACILLIN/TAZOBACTAM 3.375 GM VIAL IVPB ONE (20:41)
[2019-05-21] MEDS ORDERED: DEXTROSE 5%-WATER - 50 ML IVPB ONE (20:41)
[2019-05-22 02:12] LABS: EPI CELLS 3.4 /HPF (0-5/HPF); HYALINE CASTS 23 /lpf (0-8); URINE APPEARANCE TURBID; URINE BILIRUBIN 2+ (NEGATIVE); URINE COLOR DK YELLOW; URINE GLUCOSE (UA) NEGATIVE (NEGATIVE); URINE KETONE TRACE (NEGATIVE); URINE LEUK ESTERASE NEGATIVE (NEGATIVE); URINE NITRITE POSITIVE (NEGATIVE); URINE PROTEIN 1+ (NEGATIVE); URINE WBC 9 /hpf (0-5)
[2019-05-22] MEDS: ALBUTEROL SO4 0.083% IH SOL 2.5 MG/3 ML VIAL.NEB. NEB PRN ×3 (02:15→21:51)
[2019-05-22 02:17] LABS: URINE BACTERIA 0 /hpf (NEGATIVE); URINE RBC 11 /hpf (0-4)
[2019-05-22] MEDS ORDERED: DEXTROSE 5%-WATER - 50 ML IVPB ONE ×3 (02:40→16:47)
[2019-05-22] MEDS ORDERED: PIPERACILLIN/TAZOBACTAM 3.375 GM VIAL IVPB ONE ×3 (02:40→16:47)
[2019-05-22] MEDS: PIPERACILLIN/TAZOB 3.375 GM 3.375 GM in DEXTROSE 5%-WATER - 50 ML IVPB SCH ×3 (03:25→17:01)
[2019-05-22] MEDS: VANCOMYCIN 1 GRAM (PRE-DOCKED) 1,000 MG/250 ML BAG IVPB SCH (05:21)
[2019-05-22] MEDS: HEPARIN NA (PORCINE) 5,000 UNITS/ML 1ML VIAL SQ SCH ×3 (05:21→21:25)
[2019-05-22 07:19] LABS: HEMATOCRIT 37.3 % (35.4-49); HEMOGLOBIN 12.5 GM/dL (11.7-16.9); MCH 31.4 pg (25.7-33.7); MCHC 33.4 g/dl (32.0-35.9); MEAN CELL VOLUME 93.9 fl (80-96); MEAN PLT VOLUME 8.7 fl (7.5-11.1); PLATELET COUNT 328 K/MM3 (134-434); RBC 3.97 M/mm3 (4.00-5.60); RDW 14.6 % (11.9-15.9)
[2019-05-22 07:43] LABS: ALBUMIN 2.2 g/dl (3.4-5.0); BILIRUBIN,TOTAL 2.3 mg/dL (0.2-1); BLOOD UREA NITROGEN 8.7 mg/dL (7-18); CALCIUM 7.5 mg/dL (8.5-10.1); POTASSIUM 3.2 mmol/L (3.5-5.1); TOT PROT 6.7 g/dl (6.4-8.2)
[2019-05-22] MEDS: ALBUTEROL SO4 0.083% IH SOL 2.5 MG/3 ML VIAL.NEB. NEB SCH ×3 (07:45→18:30)
[2019-05-22] MEDS: SODIUM CHLORIDE 1,000 ML IV SCH ×2 (10:16→16:57)
[2019-05-22] MEDS: ACETAMINOPHEN 325 MG TABLET (FP) PO PRN ×2 (11:44→17:54)
--- NOTE | 2019-05-22 12:12 | PN ---
Progress Note (short form) - Note Progress Note: Thoracic Surgery: Reviewed history and images and appears most c/w infectious process, zuleika TB. Await results. Does not appear to be a lot of fluid to drain but would repeat CT tomorrow.
--- NOTE | 2019-05-22 12:20 | PN ---
Progress Note, Physician History of Present Illness: patient starting to feel a bit better still with resp issues hurts while breathing - Current Medication List Current Medications: Active Medications Acetaminophen (Tylenol -) 650 mg PO Q6H PRN PRN Reason: Fever Or Pain Last Admin: 05/22/19 11:44 Dose: 650 mg Albuterol Sulfate (Ventolin 0.083% Nebulizer Soln -) 1 amp NEB Q4H PRN PRN Reason: SHORT OF BREATH/WHEEZING Last Admin: 05/22/19 12:06 Dose: 1 amp Albuterol Sulfate (Ventolin 0.083% Nebulizer Soln -) 1 amp NEB RTID ASCENCION Last Admin: 05/22/19 07:45 Dose: 1 amp Heparin Sodium (Porcine) (Heparin -) 5,000 unit SQ TID ASCENCION Last Admin: 05/22/19 05:21 Dose: 5,000 unit Sodium Chloride (Normal Saline -) 1,000 mls @ 125 mls/hr IV ASDIR ASCENCION Last Admin: 05/22/19 10:16 Dose: 125 mls/hr Piperacillin Sod/Tazobactam (Sod 3.375 gm/ Dextrose) 50 mls @ 100 mls/hr IVPB Q8H-IV ASCENCION; Protocol Last Admin: 05/22/19 10:16 Dose: 100 mls/hr Vancomycin HCl 1,500 mg/ (Dextrose) 500 mls @ 125 mls/hr IVPB Q12H ASCENCION; Protocol - Objective Vital Signs: Vital Signs Temperature 100.4 F H 05/22/19 10:30 Pulse Rate 115 H 05/22/19 10:30 Respiratory Rate 20 05/22/19 10:30 Blood Pressure 120/73 05/22/19 10:30 O2 Sat by Pulse Oximetry (%) 92 L 05/21/19 20:27 Constitutional: Yes: Calm, Mild Distress Eyes: Yes: Conjunctiva Clear Cardiovascular: Yes: S1, S2 Respiratory: Yes: Regular, On Nasal O2, Poor Air Entry, Wheezes Gastrointestinal: Yes: Normal Bowel Sounds, Soft Musculoskeletal: Yes: WNL Extremities: Yes: WNL Neurological: Yes: Alert, Oriented Psychiatric: Yes: Alert, Oriented Labs: CBC, BMP 05/22/19 06:50 05/22/19 06:50 INR, PTT INR 1.56 (0.83-1.09) H 05/21/19 08:50 Assessment/Plan Pneumonia Cavitary Lesions Sepsis Acute Kidney Injury Elevated LFTs Asthma r/o malignancy plan continue abx monitor consider getting a biopsy of the tissues again one consideration is drugs rest as per the team
--- NOTE | 2019-05-22 12:47 | EKG ---
Test Reason : Blood Pressure : / mmHG Vent. Rate : 133 BPM Atrial Rate : 133 BPM P-R Int : 134 ms QRS Dur : 076 ms QT Int : 282 ms P-R-T Axes : 060 036 054 degrees QTc Int : 419 ms POOR DATA QUALITY, INTERPRETATION MAY BE ADVERSELY AFFECTED SINUS TACHYCARDIA OTHERWISE NORMAL ECG WHEN COMPARED WITH ECG OF 19-MAY-2019 14:02, NO SIGNIFICANT CHANGE WAS FOUND Confirmed by MD JEFFY, JN ([id number]) on 05/22/2019 12:46:47 PM Referred By: Confirmed By:JN BARDALES MD
--- NOTE | 2019-05-22 12:59 | PN ---
Progress Note, Physician History of Present Illness: PULMONARY ALERT,FEELING BETTER,FEBRILE,LESS DYSPNEIC - Current Medication List Current Medications: Active Medications Acetaminophen (Tylenol -) 650 mg PO Q6H PRN PRN Reason: Fever Or Pain Last Admin: 05/22/19 11:44 Dose: 650 mg Albuterol Sulfate (Ventolin 0.083% Nebulizer Soln -) 1 amp NEB Q4H PRN PRN Reason: SHORT OF BREATH/WHEEZING Last Admin: 05/22/19 12:06 Dose: 1 amp Albuterol Sulfate (Ventolin 0.083% Nebulizer Soln -) 1 amp NEB RTID ASCENCION Last Admin: 05/22/19 07:45 Dose: 1 amp Heparin Sodium (Porcine) (Heparin -) 5,000 unit SQ TID ASCENCION Last Admin: 05/22/19 05:21 Dose: 5,000 unit Sodium Chloride (Normal Saline -) 1,000 mls @ 125 mls/hr IV ASDIR ASCENCION Last Admin: 05/22/19 10:16 Dose: 125 mls/hr Piperacillin Sod/Tazobactam (Sod 3.375 gm/ Dextrose) 50 mls @ 100 mls/hr IVPB Q8H-IV ASCENCION; Protocol Last Admin: 05/22/19 10:16 Dose: 100 mls/hr Vancomycin HCl 1,500 mg/ (Dextrose) 500 mls @ 125 mls/hr IVPB Q12H ASCENCION; Protocol - Objective Vital Signs: Vital Signs Temperature 100.4 F H 05/22/19 10:30 Pulse Rate 115 H 05/22/19 10:30 Respiratory Rate 20 05/22/19 10:30 Blood Pressure 120/73 05/22/19 10:30 O2 Sat by Pulse Oximetry (%) 92 L 05/21/19 20:27 Constitutional: Yes: Well Nourished, Calm Eyes: Yes: WNL HENT: Yes: WNL Neck: Yes: WNL Cardiovascular: Yes: Regular Rate and Rhythm, S1, S2 Respiratory: Yes: CTA Bilaterally Gastrointestinal: Yes: Normal Bowel Sounds, Soft Extremities: Yes: WNL Edema: No Labs: CBC, BMP 05/22/19 06:50 05/22/19 06:50 INR, PTT INR 1.56 (0.83-1.09) H 05/21/19 08:50 Problem List - Problems (1) Cavitary lesion of lung Code(s): J98.4 - OTHER DISORDERS OF LUNG (2) Hypoxia Code(s): R09.02 - HYPOXEMIA (3) Shortness of breath Code(s): R06.02 - SHORTNESS OF BREATH Assessment/Plan A/P Pneumonia ?Staph Cavitary Lesions Sepsis Acute Kidney Injury Elevated LFTs Asthma - antibiotics per ID - f/u cultures - quantiferon, fungitell pending - inhaled bronchodilators - O2 to keep SpO2 >90% - IVF - monitor urine output, creatinine - trend LFTs - DVT prophylaxis - can do bronchoscopy/BAL if sputum studies unrevealing - ? diagnostic thoracentesis - repeat u/a - CRP DR ROBLEDO
[2019-05-22] MEDS ORDERED: TUBERCULIN PPD 5 TU/0.1ML SYRINGE (IN PATIENT USE ONLY) ID ONE (14:15)
--- NOTE | 2019-05-22 15:07 | PN ---
Physical Exam: SUBJECTIVE: Patient seen and examined. Pt still reports weakness, lack of improvement, coughing with productive sputum and worsening rib/back pain. Pt had no overnight events. Denies f/c/n/v/d/chest pain/sob OBJECTIVE: Vital Signs Period Temp Pulse Resp BP Sys/[place] Pulse Ox Last 24 Hr 99.2 F-100.4 F 107-115 20-22 106-148/52-83 92 ENERAL: The patient is awake, alert, and fully oriented, in no acute distress. HEAD: Normal with no signs of trauma. EYES: PERRL, extraocular movements intact, sclera mildly icteric, ENT: oropharynx clear without exudates, moist mucous membranes. NECK: Trachea midline, full range of motion, supple. LUNGS: Breath sounds equal, clear to auscultation bilaterally, Mild inspiratory wheezes, mild crackles, Chest: Tenderness to palpation on the right lateral aspect of the ribs HEART: Regular rate and rhythm, S1, S2 without murmur, rub or gallop. ABDOMEN: Soft, nontender, nondistended, normoactive bowel sounds, no guarding, Back: Tenderness to palpation on the right posteriorly EXTREMITIES: 2+ pulses, warm, well-perfused, no edema. NEUROLOGICAL: Cranial nerves II through XII grossly intact. PSYCH: Normal mood, normal affect. SKIN: Warm, dry, normal turgor, no rashes Laboratory Results - last 24 hr 05/22/19 05/22/19 06:50 06:50 WBC 19.0 H RBC 3.97 L Hgb 12.5 Hct 37.3 MCV 93.9 MCH 31.4 MCHC 33.4 RDW 14.6 Plt Count 328 MPV 8.7 Sodium 134 L Potassium 3.2 L Chloride 98 Carbon Dioxide 31 Anion Gap 4 L BUN 8.7 Creatinine 1.0 Est GFR (CKD-EPI)AfAm 112.51 Est GFR (CKD-EPI)NonAf 97.08 Random Glucose 141 H Calcium 7.5 L Total Bilirubin 2.3 H AST 78 H ALT 106 H Alkaline Phosphatase 128 H Total Protein 6.7 Albumin 2.2 L Urine Color Urine Appearance Urine pH Ur Specific [place] Urine Protein Urine Glucose (UA) Urine Ketones Urine Blood Urine Nitrite Urine Bilirubin Urine Urobilinogen Ur Leukocyte Esterase Urine WBC (Auto) Urine RBC (Auto) Urine Casts (Auto) U Pathogenic Cast Auto U Epithel Cells (Auto) Urine Bacteria (Auto) Vancomycin Pre-Dose TB Test (QFT) Nil TB Test (QFT) Mitogen TB Test (QFT) Antigen TB Test (QFT) TB Positive Criteria Active Medications Generic Name Dose Route Start Last Admin Trade Name Freq PRN Reason Stop Dose Admin Acetaminophen 650 mg 05/22/19 10:35 05/22/19 11:44 Tylenol - PO 650 mg Q6H PRN Administration Fever Or Pain Albuterol Sulfate 1 amp 05/20/19 10:43 05/22/19 12:06 Ventolin 0.083% Nebulizer Soln - NEB 1 amp Q4H PRN Administration SHORT OF BREATH/WHEEZING Albuterol Sulfate 1 amp 05/20/19 14:00 05/22/19 13:45 Ventolin 0.083% Nebulizer Soln - NEB 1 amp RTID ASCENCION Administration Heparin Sodium (Porcine) 5,000 unit 05/21/19 15:00 05/22/19 13:43 Heparin - SQ 5,000 unit TID ASCENCION Administration Sodium Chloride 1,000 mls @ 125 mls/hr 05/20/19 08:00 05/22/19 10:16 Normal Saline - IV 125 mls/hr ASDIR ASCENCION Administration Piperacillin Sod/Tazobactam 50 mls @ 100 mls/hr 05/20/19 18:00 05/22/19 10:16 Sod 3.375 gm/ Dextrose IVPB 100 mls/hr Q8H-IV ASCENCION Administration Protocol Vancomycin HCl 1,500 mg/ 500 mls @ 125 mls/hr 05/22/19 17:00 Dextrose IVPB Q12H ASCENCION Protocol ASSESSMENT/PLAN: #Sepsis likely 2/2 to Pneumonia must r/o TB in the setting of 20Ib weight loss, generalized weakness, decreased appetite, CT chest with cavitary lesions Other causes to consider include necrotizing bacterial multifocal pneumonia caused by staph aureus or pseudomonas, aspergillosis or malignancy Could also be vasculitis etiology cont vanc and zosyn Sputum Cx- MRSA ECHO normal Vanc trough f/u Airborne isolation- till TB is r/o Quantiferon for TB- pending #Empyema 2/2 PNA CXR- slight increased pleural effusion Thoracic surgery- r/p CT chest in am #Transaminits- appears to be a mix of cholestatic and hepatocellular cause MRCP- no evidenc eof obstruction or cholestasis #Asthma Albuterol as need NC 2L if desats or sob- place on BiPaP #DVT ppx scds b/l FEN Fluids at 125 monitor lytes regular diet Dispo: Pt Transfered to [facility] as per pt's request Visit type - Emergency Visit Emergency Visit: Yes ED Registration Date: 05/19/19 Care time: The patient presented to the Emergency Department on the above date and was hospitalized for further evaluation of their emergent condition. - New Patient This patient is new to me today: Yes Date on this admission: 05/22/19 - Critical Care Critical Care patient: No - Discharge Referral Referred to [facility] Med P.C.: No ATTENDING PHYSICIAN STATEMENT I saw and evaluated the patient. I reviewed the resident's note and discussed the case with the resident. I agree with the resident's findings and plan as documented. SUBJECTIVE: OBJECTIVE: ASSESSMENT AND PLAN:
--- NOTE | 2019-05-22 15:16 | PN ---
Teaching Attending Note Name of Resident: Vinayak Ashley ATTENDING PHYSICIAN STATEMENT I saw and evaluated the patient. I reviewed the resident's note and discussed the case with the resident. I agree with the resident's findings and plan as documented. SUBJECTIVE: He feels better today. still with pain in his side when he coughs. no pain in mid back. no pain with movements only with cough. has green sputum production . Had one water BM today. no abd pain. no N/V OBJECTIVE: NAD. awake, icteric sclera. CV: RRR, no MRG. Lungs: fine crackles in mid R lung field Abd: soft, NT, ND,NL BS Ext: No edema or erythema or rash Assessment/Plan: 34 y/o gentleman with h/o Asthma, and previous PNA, who presented with fever , chills, and SOB with CP. He was found to have b/l PNA 1- Sepsis due to B/l staph PNA with lung abscess and suspected R sided empyema. - cont avnco and zosyn . increase vanco to 1.5 q 12 hr due to low trough - follow all remaining cx - Echo with no vegetations. - ABF in sputum pending - f/u QTF - Thoracic sx consult .Recs: repeat CT tomorrow - decrease IVF 2- Echo did not show pericardial effusion , but MRCP showed possible small loculated pericardial effusion. - Spoke to Mary Frank who will review echo images again 3- VIDAL: due to volume depletion and sepsis. improved with IVF. 4- Transaminitis: Mixed picture, hepatocellular and cholestatic . likely due to sepsis. Bili improved - Tylenol, drug testing, and salicylate neg - MRCP with no stones, obstruction or dilatioin CBD 5- Prediabetes 6- H/o Asthma: Nebs as needed. DVT px PAtient requested to be transferred to Another hospital. [facility] was contacted and transfer was declined. [facility] accepted the patient
--- NOTE | 2019-05-22 15:17 | CONSULT ---
Consultation: REQUESTING PROVIDER: Dr. Tam CONSULT SERVICE: Nephrology HISTORY OF PRESENT ILLNESS: Patient is a 34 year old male with history of asthma presented with complaint of shortness of breath with associated productive cough, and 20 pound weight loss over past few weeks. Patient was found to be septic upon presentation; febrile to 101.2F, and WBC count to 24.5, with lactic acid to 2.1. Chest CT revealed pleural effusion with partially loculated cavitary lesion in right lower lobe, in addition to 5.3 cm cavitary lesion in left upper lobe. His urinalysis revealed dark yellow turbid urine, with proteinuria, hematuria, pyuria, bateriuria, nitrites, and bilirubin. His BUN/ Cr elevated to 20.4/ 1.4 respectively. Nephrology consulted regarding concern for vasculitidies. Past medical history: asthma Past surgical history: tonsilectomy Family history: noncontributory Medications: Alburterol inhaler Social: Smokes marijuana (denies vaporizer use). Denies cigarette smoking. Drinks Tequilla occassionally (2-3 shots). Works in [employer]. REVIEW OF SYSTEMS: As per HPI PHYSICAL EXAMINATION Vital Signs - 24 hr 05/21/19 05/21/19 05/22/19 20:23 20:27 06:00 Temperature 100.3 F H 99.2 F Pulse Rate 108 H 110 H Respiratory 22 H 22 H 22 H Rate Blood Pressure 148/83 132/52 L O2 Sat by Pulse 92 L Oximetry (%) 05/22/19 05/22/19 10:30 13:39 Temperature 100.4 F H 99.4 F Pulse Rate 115 H 107 H Respiratory 20 22 H Rate Blood Pressure 120/73 106/67 O2 Sat by Pulse Oximetry (%) GENERAL: Patient is awake, alert, and fully oriented, in no acute distress. HEENT: NCAT. PERRL, EOMI, sclerae icteric. Moist mucous membranes. LUNGS: Good inspiratory effort, and air entery bilaterally. Faint wheezing without crackles. No accessory muscle use. HEART: Regular rate and rhythm, normal S1 and S2 without murmur, rub or gallop. ABDOMEN: Soft, nontender, not distended, normoactive bowel sounds, no guarding, no rebound tenderness. EXTREMITIES: 2+ pulses, warm, well-perfused. No peripheral edema. NEUROLOGICAL: Cranial nerves II-XII intact. Normal speech. No gross focal deficits. PSYCHIATRIC: Cooperative. Good eye contact. Appropriate mood and affect. SKIN: Warm, dry. Laboratory Results - last 24 hr 05/19/19 05/21/19 05/22/19 07:38 19:55 01:47 WBC RBC Hgb Hct MCV MCH MCHC RDW Plt Count MPV Sodium Potassium Chloride Carbon Dioxide Anion Gap BUN Creatinine Est GFR (CKD-EPI)AfAm Est GFR (CKD-EPI)NonAf Random Glucose Calcium Total Bilirubin AST ALT Alkaline Phosphatase Total Protein Albumin Urine Color Dk yellow Urine Appearance Turbid Urine pH 5.0 Ur Specific [place] 1.024 Urine Protein 1+ H Urine Glucose (UA) Negative Urine Ketones Trace H Urine Blood 3+ H Urine Nitrite Positive H Urine Bilirubin 2+ H Urine Urobilinogen 1.0 Ur Leukocyte Esterase Negative Urine WBC (Auto) 9 Urine RBC (Auto) 11 Urine Casts (Auto) 23 U Pathogenic Cast Auto none seen U Epithel Cells (Auto) 3.4 Urine Bacteria (Auto) 0 Vancomycin Pre-Dose 2.6 L TB Test (QFT) Nil 0.02 TB Test (QFT) Mitogen 5.22 TB Test (QFT) Antigen 0.01 TB Test (QFT) Negative TB Positive Criteria 05/22/19 05/22/19 06:50 06:50 WBC 19.0 H RBC 3.97 L Hgb 12.5 Hct 37.3 MCV 93.9 MCH 31.4 MCHC 33.4 RDW 14.6 Plt Count 328 MPV 8.7 Sodium 134 L Potassium 3.2 L Chloride 98 Carbon Dioxide 31 Anion Gap 4 L BUN 8.7 Creatinine 1.0 Est GFR (CKD-EPI)AfAm 112.51 Est GFR (CKD-EPI)NonAf 97.08 Random Glucose 141 H Calcium 7.5 L Total Bilirubin 2.3 H AST 78 H ALT 106 H Alkaline Phosphatase 128 H Total Protein 6.7 Albumin 2.2 L Urine Color Urine Appearance Urine pH Ur Specific [place] Urine Protein Urine Glucose (UA) Urine Ketones Urine Blood Urine Nitrite Urine Bilirubin Urine Urobilinogen Ur Leukocyte Esterase Urine WBC (Auto) Urine RBC (Auto) Urine Casts (Auto) U Pathogenic Cast Auto U Epithel Cells (Auto) Urine Bacteria (Auto) Vancomycin Pre-Dose TB Test (QFT) Nil TB Test (QFT) Mitogen TB Test (QFT) Antigen TB Test (QFT) TB Positive Criteria Active Medications Generic Name Dose Route Start Last Admin Trade Name Freq PRN Reason Stop Dose Admin Acetaminophen 650 mg 05/22/19 10:35 05/22/19 11:44 Tylenol - PO 650 mg Q6H PRN Administration Fever Or Pain Albuterol Sulfate 1 amp 05/20/19 10:43 05/22/19 12:06 Ventolin 0.083% Nebulizer Soln - NEB 1 amp Q4H PRN Administration SHORT OF BREATH/WHEEZING Albuterol Sulfate 1 amp 05/20/19 14:00 05/22/19 13:45 Ventolin 0.083% Nebulizer Soln - NEB 1 amp RTID ASCENCION Administration Heparin Sodium (Porcine) 5,000 unit 05/21/19 15:00 05/22/19 13:43 Heparin - SQ 5,000 unit TID ASCENCION Administration Sodium Chloride 1,000 mls @ 125 mls/hr 05/20/19 08:00 05/22/19 10:16 Normal Saline - IV 125 mls/hr ASDIR ASCENCION Administration Piperacillin Sod/Tazobactam 50 mls @ 100 mls/hr 05/20/19 18:00 05/22/19 10:16 Sod 3.375 gm/ Dextrose IVPB 100 mls/hr Q8H-IV ASCENCION Administration Protocol Vancomycin HCl 1,500 mg/ 500 mls @ 125 mls/hr 05/22/19 17:00 Dextrose IVPB Q12H ASCENCION Protocol ASSESSMENT/PLAN: Patient is a 34 year old male with history of asthma admitted for sepsis secondary to pneumonia. Acute kidney injury -Patient initially presented with BUN 20.4/ Cr 1.4 which resolved with IV fluid hydration. -VIDAL likely secondary to sepsis. However, given hematuria within his urinalysis , concern also for vasculitis. -Will obtain repeat UA, renal ultrasound, ANCA, C3, C4, ESR, CRP, anti glomerular basement membrane antibodies, serum protein electrophoresis -Avoid nephrotoxic agents Sepsis secondary to pneumonia -Currently on Vancomycin, Zosyn. ID, Pulmonary recommendations appreciated -Follow blood, urine, sputum cultures. -Continue IV fluids Disposition: We will continue to follow the patient. Thank you for this consultative opportunity. Patient is pending transfer to [facility] Visit type - Emergency Visit Emergency Visit: Yes ED Registration Date: 05/19/19 Care time: The patient presented to the Emergency Department on the above date and was hospitalized for further evaluation of their emergent condition. - New Patient This patient is new to me today: Yes Date on this admission: 05/22/19 - Critical Care Critical Care patient: No ATTENDING PHYSICIAN STATEMENT I saw and evaluated the patient. I reviewed the resident's note and discussed the case with the resident. I agree with the resident's findings and plan as documented. SUBJECTIVE: OBJECTIVE: ASSESSMENT AND PLAN:
[2019-05-22] MEDS ORDERED: POTASSIUM CHLORIDE TABS 20 MEQ TABLET.ER (FP) PO ONE ×2 (15:21→16:45)
[2019-05-22 15:25] VITALS: BMI 33.2
--- NOTE | 2019-05-22 16:22 | PN ---
Teaching Attending Note Name of Resident: Rogerio Wan (Nephrology) ATTENDING PHYSICIAN STATEMENT I saw and evaluated the patient. I reviewed the resident's note and discussed the case with the resident. I agree with the resident's findings and plan as documented. Nephrology Pt is a 34 year old male with pmhx of of asthma who presents to the E with shortness of breath and cough. He was initially found to have an elevated creatinine that did respond to fluids. I was called to evaluate him for abnormal ua. He was found to have cavitary lesion in his lung as well. He denied hematuria or dysuria. He does complains of diarrhea. PMHX asthma allergis apple banana fish, nuts, orange family hx denies ros diarrhea Current Medications Generic Name Dose Route Start Last Admin Trade Name Freq PRN Reason Stop Dose Admin Acetaminophen 650 mg 05/22/19 10:35 05/22/19 11:44 Tylenol - PO 650 mg Q6H PRN Administration Fever Or Pain Albuterol Sulfate 1 amp 05/20/19 10:43 05/22/19 12:06 Ventolin 0.083% Nebulizer Soln - NEB 1 amp Q4H PRN Administration SHORT OF BREATH/WHEEZING Albuterol Sulfate 1 amp 05/20/19 14:00 05/22/19 13:45 Ventolin 0.083% Nebulizer Soln - NEB 1 amp RTID ASCENCION Administration Heparin Sodium (Porcine) 5,000 unit 05/21/19 15:00 05/22/19 13:43 Heparin - SQ 5,000 unit TID ASCENCION Administration Piperacillin Sod/Tazobactam 50 mls @ 100 mls/hr 05/20/19 18:00 05/22/19 10:16 Sod 3.375 gm/ Dextrose IVPB 100 mls/hr Q8H-IV ASCENCION Administration Protocol Vancomycin HCl 1,500 mg/ 500 mls @ 125 mls/hr 05/22/19 17:00 Dextrose IVPB Q12H ASCENCION Protocol Sodium Chloride 1,000 mls @ 100 mls/hr 05/22/19 15:20 Normal Saline - IV ASDIR ASCENCION cardio s1s2 pulm on nc o2 GI soft ext neg edema neuro awake and alert skin neg rash Impression 1. dehydration 2. sepsis 3. microscopic hematuria 4. hypokalemia Plan - replace potassium - cont fluidos - repeat ua with a clean catch - pt is being transferred to a tertiary care center - vasculitis workup ordered
--- NOTE | 2019-05-22 17:57 | DS ---
Physical Exam: SUBJECTIVE: Patient seen and examined. Pt still reports weakness, lack of improvement, coughing with productive sputum and worsening rib/back pain. Rib and back pain are not tender anymore but still painful during deep breathing and coughing. Pt had no overnight events. Denies f/c/n/v/d/chest pain/sob OBJECTIVE: Vital Signs Period Temp Pulse Resp BP Sys/Fontana Pulse Ox Last 24 Hr 99.2 F-100.7 F 107-115 20-23 106-148/52-83 92-94 PHYSICAL EXAM GENERAL: The patient is awake, alert, and fully oriented, in no acute distress. HEAD: Normal with no signs of trauma. EYES: PERRL, extraocular movements intact, sclera mildly icteric, ENT: oropharynx clear without exudates, moist mucous membranes. NECK: Trachea midline, full range of motion, supple. LUNGS: Breath sounds equal, clear to auscultation bilaterally, Mild inspiratory wheezes, mild crackles, Chest: Tenderness to palpation on the right lateral aspect of the ribs HEART: Regular rate and rhythm, S1, S2 without murmur, rub or gallop. ABDOMEN: Soft, nontender, nondistended, normoactive bowel sounds, no guarding, Back: Tenderness to palpation on the right posteriorly EXTREMITIES: 2+ pulses, warm, well-perfused, no edema. NEUROLOGICAL: Cranial nerves II through XII grossly intact. PSYCH: Normal mood, normal affect. SKIN: Warm, dry, normal turgor, no rashes LABS Laboratory Results - last 24 hr CBC,CMP WBC 19.0 K/mm3 (4.0-10.0) H 05/22/19 06:50 RBC 3.97 M/mm3 (4.00-5.60) L 05/22/19 06:50 Hgb 12.5 GM/dL (11.7-16.9) 05/22/19 06:50 Hct 37.3 % (35.4-49) 05/22/19 06:50 MCV 93.9 fl (80-96) 05/22/19 06:50 MCH 31.4 pg (25.7-33.7) 05/22/19 06:50 MCHC 33.4 g/dl (32.0-35.9) 05/22/19 06:50 RDW 14.6 % (11.9-15.9) 05/22/19 06:50 Plt Count 328 K/MM3 (134-434) 05/22/19 06:50 MPV 8.7 fl (7.5-11.1) 05/22/19 06:50 Absolute Neuts (auto) 19.3 K/mm3 (1.5-8.0) H 05/21/19 05:30 Neutrophils % 85.5 % (42.8-82.8) H 05/21/19 05:30 Neutrophils % (Manual) 76.0 % (42.8-82.8) 05/21/19 05:30 Band Neutrophils % 2.0 % 05/21/19 05:30 Lymphocytes % 5.5 % (8-40) L D 05/21/19 05:30 Lymphocytes % (Manual) 4.0 % (8-40) L D 05/21/19 05:30 Monocytes % 8.4 % (3.8-10.2) 05/21/19 05:30 Monocytes % (Manual) 13 % (3.8-10.2) H 05/21/19 05:30 Eosinophils % 0.2 % (0-4.5) D 05/21/19 05:30 Eosinophils % (Manual) 1.0 % (0-4.5) D 05/21/19 05:30 Basophils % 0.4 % (0-2.0) 05/21/19 05:30 Basophils % (Manual) 0.0 % (0-2.0) 05/21/19 05:30 Myelocytes % (Man) 1 % (0-2) 05/21/19 05:30 Promyelocytes % (Man) 0 % (0-2) 05/21/19 05:30 Blast Cells % (Manual) 0 % (0-0) 05/21/19 05:30 Nucleated RBC % 0 % (0-0) 05/21/19 05:30 Metamyelocytes 0 % (0-2) 05/21/19 05:30 Hypochromia 0 05/21/19 05:30 Platelet Estimate Normal 05/21/19 05:30 Polychromasia 1+ 05/21/19 05:30 Poikilocytosis 0 05/21/19 05:30 Anisocytosis 0 05/21/19 05:30 Microcytosis 0 05/21/19 05:30 Macrocytosis 0 05/21/19 05:30 Spherocytes 1+ 05/21/19 05:30 ESR 102 mm/hr (0-10) H 05/22/19 15:00 Sodium 134 mmol/L (136-145) L 05/22/19 06:50 Potassium 3.2 mmol/L (3.5-5.1) L 05/22/19 06:50 Chloride 98 mmol/L (98-107) 05/22/19 06:50 Carbon Dioxide 31 mmol/L (21-32) 05/22/19 06:50 Anion Gap 4 MMOL/L (8-16) L 05/22/19 06:50 BUN 8.7 mg/dL (7-18) 05/22/19 06:50 Creatinine 1.0 mg/dL (0.55-1.3) 05/22/19 06:50 Est GFR (CKD-EPI)AfAm 112.51 05/22/19 06:50 Est GFR (CKD-EPI)NonAf 97.08 05/22/19 06:50 Random Glucose 141 mg/dL (74-106) H 05/22/19 06:50 Hemoglobin A1c % 5.7 % (4.2-6.3) 05/20/19 05:50 Lactic Acid 1.5 mmol/L (0.4-2.0) 05/20/19 07:38 Calcium 7.5 mg/dL (8.5-10.1) L 05/22/19 06:50 Phosphorus 2.8 mg/dL (2.5-4.9) 05/20/19 05:50 Magnesium 2.7 mg/dL (1.8-2.4) H 05/20/19 05:50 Total Bilirubin 2.3 mg/dL (0.2-1) H 05/22/19 06:50 Direct Bilirubin 2.4 mg/dL (0.0-0.2) H 05/21/19 05:30 AST 78 U/L (15-37) H 05/22/19 06:50 ALT 106 U/L (13-61) H 05/22/19 06:50 Alkaline Phosphatase 128 U/L (45-117) H 05/22/19 06:50 Creatine Kinase 141 U/L (26-308) 05/19/19 15:05 C-Reactive Protein 21.7 MG/DL (0.00-0.3) H 05/22/19 15:00 Total Protein 6.7 g/dl (6.4-8.2) 05/22/19 06:50 Albumin 2.2 g/dl (3.4-5.0) L 05/22/19 06:50 Current Medications Acetaminophen (Tylenol -) 650 mg PO Q6H PRN PRN Reason: Fever Or Pain Last Admin: 05/22/19 11:44 Dose: 650 mg Albuterol Sulfate (Ventolin 0.083% Nebulizer Soln -) 1 amp NEB Q4H PRN PRN Reason: SHORT OF BREATH/WHEEZING Last Admin: 05/22/19 12:06 Dose: 1 amp Albuterol Sulfate (Ventolin 0.083% Nebulizer Soln -) 1 amp NEB RTID ASCENCION Last Admin: 05/22/19 13:45 Dose: 1 amp Heparin Sodium (Porcine) (Heparin -) 5,000 unit SQ TID ASCENCION Last Admin: 05/22/19 13:43 Dose: 5,000 unit Piperacillin Sod/Tazobactam (Sod 3.375 gm/ Dextrose) 50 mls @ 100 mls/hr IVPB Q8H-IV ASCENCION; Protocol Last Admin: 05/22/19 17:01 Dose: 100 mls/hr Vancomycin HCl 1,500 mg/ (Dextrose) 500 mls @ 125 mls/hr IVPB Q12H ASCENCION; Protocol Sodium Chloride (Normal Saline -) 1,000 mls @ 100 mls/hr IV ASDIR ASCENCION Last Admin: 05/22/19 16:57 Dose: 100 mls/hr Microbiology 05/19/19 16:04 Blood - Peripheral Venous Blood Culture - Preliminary NO GROWTH OBTAINED AFTER 72 HOURS, INCUBATION TO CONTINUE FOR 2 DAYS. 05/19/19 16:04 Blood - Peripheral Venous Blood Culture - Preliminary NO GROWTH OBTAINED AFTER 72 HOURS, INCUBATION TO CONTINUE FOR 2 DAYS. 05/20/19 09:55 Sputum - Expectorated AFB Smear Concentration - Final 05/20/19 09:55 Sputum - Expectorated Mycobacterial Culture - Preliminary 05/20/19 12:13 Sputum - Expectorated Gram Stain - Final 05/20/19 12:13 Sputum - Expectorated Sputum Culture - Final Yeast Like Organism 05/19/19 16:09 Sputum - Expectorated Gram Stain - Final 05/19/19 16:09 Sputum - Expectorated Sputum Culture - Final S Aureus 05/19/19 17:11 Urine - Urine Clean Catch Urine Culture - Final NO GROWTH OBTAINED 05/20/19 12:13 Urine - Urine Clean Catch Legionella Antigen - Final 05/20/19 12:13 Urine - Urine Clean Catch Streptococcus pneumoniae Antigen ( M - Final HOSPITAL COURSE: Date of Admission:05/19/19 34 y/o M, pmh of asthma presents w/ SOB and greenish productive cough of 1 week duration that started spontaneously and was associated with generalized weakness , decrease in appetite, 20b weight loss and right sided rib pain likely 2/2 b/l multifocal pneumonia. Pt was initially suspected to have tuberculosis and was worked up for it with QTF gold, AFBx3, sputum Cx. CT chest was evident for a thick walled cavitary mass lesion in the anterior basal segment of the right lower lobe, 3.1 x 2.9 x 3.3 cm with an 8 cm long communicating. There is a cavitary lesion with thick irregular griggs in the left upper lobe, measuring 5.3 x 4.2 x 5.2 cm, right sided pleural effusion was also present. Pt was placed in air borne isolation. However, after medicine consult, we had determined that this was likely abscess 2/2 to b/l PNA causing sepsis, w/ likely empyema causing the pleural effusion due to abscess draining into the pleural space. We started pt on vancomycin and zosyn after discussion w/ ID as well. One sputum Cx came back positive for MRSA, therefore we continued our abx as is and placed pt on contact precaution as well. Urine legionella, HIV test all came back negative. QTF gold is still pending along with AFBx3. We also found pt to have transaminitis due to elevated LFTs. This was like 2/2 to sepsis but we had to r/o hepatocellular or cholestatic causes. We did an MRCP which was evident for a partially loculated effusion anteriorly and laterally in the right middle and lower lobes in addition to the small posterior free layering pleural effusion. Partially imaged right infrahilar opacity corresponding to focal cavitary lesion/infiltrate are also seen on CT. There was also an unusual small cardiac effusion loculated on the right which was not picked up on the ECHO, this will require further investigation at [facility]. CTA chest- There is a thick walled cavitary mass lesion in the anterior basal segment of the right lower lobe, 3.1 x 2.9 x 3.3 cm with an 8 cm long communicating. There is a cavitary lesion with thick irregular griggs in the left upper lobe, measuring 5.3 x 4.2 x 5.2 cm. The possibility of tuberculosis cannot be ruled out CXR- showing left upper lobe mass like density w/ possible infiltrates and RLL infiltrates CXR-05/22/19 slight increased pleural effusion ECHO: mild aortic sclerosis, EF normal Pt requested transfer to [facility] and he was accepted and Transferred. Date of Discharge: 05/22/19 Minutes to complete discharge: 35 Discharge Summary Problems reviewed: Yes Reason For Visit: HYPOXIA,SEPSIS,CAVITARY LESION OF LUNG Current Active Problems Sepsis (Acute) Cavitary lesion of lung (Chronic) Condition: Improved - Instructions Diet, Activity, Other Instructions: You were admitted to the hospital for shortness of breath and productive sputum likely due to pneumonia While you were in the hospital, we evaluated you with lab work, blood work, tests for tuberculosis, imaging including CAT scan of your chest and abdomen. We found that your symptoms were caused by an infection of both of your lungs, which required emergent treatment with antibiotics. We consulted specialist to address your case. You will need to undergo several procedures to investigate the main cause of your infection However, due to your preference and request, we have contacted [facility] to have you transferred to their facility for medical care and they have accepted our Transfer. Please return to the emergency room, if you experience any worsening of your condition, nausea, vomiting, diarrhea, chest pain or shortness of breath. Referrals: Brice Elizondo MD [Staff Physician] - Earl Naranjo MD [Staff Physician] - Dane Leonard MD [Staff Physician] - Beto Marion MD [Staff Physician] - Disposition: TRANSFER ACUTE CARE/OTHER HOSP - Home Medications Comprehensive Discharge Medication List: Ambulatory Orders Albuterol Sulfate Inhaler - [Ventolin HFA Inhaler -] 1 - 2 inh PO QID PRN This patient is new to me today: Yes Date on this admission: 05/22/19 Emergency Visit: Yes ED Registration Date: 05/19/19 Care time: The patient presented to the Emergency Department on the above date and was hospitalized for further evaluation of their emergent condition. Critical Care patient: No - Discharge Referral Referred to [facility] No ATTENDING PHYSICIAN STATEMENT I saw and evaluated the patient. I reviewed the resident's note and discussed the case with the resident. I agree with the resident's findings and plan as documented. SUBJECTIVE: OBJECTIVE: ASSESSMENT AND PLAN:
[2019-05-22 17:58] LABS: POTASSIUM 3.2 mmol/L (3.5-5.1)
[2019-05-22] MEDS ORDERED: PT OWN MED DRAWER 7, Y5N ONE (18:54)
[2019-05-22] MEDS: VANCOMYCIN HCL 1,500 MG in DEXTROSE 5%-WATER - 500 ML IVPB SCH (21:24)
[2019-05-23] MEDS ORDERED: DEXTROSE 5%-WATER - 50 ML IVPB ONE ×4 (01:28→20:08)
[2019-05-23] MEDS ORDERED: PIPERACILLIN/TAZOBACTAM 3.375 GM VIAL IVPB ONE ×4 (01:28→20:08)
[2019-05-23] MEDS: PIPERACILLIN/TAZOB 3.375 GM 3.375 GM in DEXTROSE 5%-WATER - 50 ML IVPB SCH ×3 (01:57→18:31)
[2019-05-23] MEDS: ALBUTEROL SO4 0.083% IH SOL 2.5 MG/3 ML VIAL.NEB. NEB PRN (03:19)
[2019-05-23] MEDS ORDERED: PT OWN MED DRAWER 7, Y5N ONE (06:09)
[2019-05-23] MEDS: VANCOMYCIN HCL 1,500 MG in DEXTROSE 5%-WATER - 500 ML IVPB SCH ×2 (06:39→21:08)
[2019-05-23] MEDS: HEPARIN NA (PORCINE) 5,000 UNITS/ML 1ML VIAL SQ SCH ×3 (06:39→21:09)
[2019-05-23 07:13] LABS: HEMATOCRIT 35.1 % (35.4-49); HEMOGLOBIN 11.9 GM/dL (11.7-16.9); MCH 31.2 pg (25.7-33.7); MCHC 33.8 g/dl (32.0-35.9); MEAN CELL VOLUME 92.2 fl (80-96); MEAN PLT VOLUME 8.4 fl (7.5-11.1); PLATELET COUNT 308 K/MM3 (134-434); RBC 3.81 M/mm3 (4.00-5.60); RDW 14.7 % (11.9-15.9); WHITE BLOOD COUNT 17.1 K/mm3 (4.0-10.0)
[2019-05-23 07:43] LABS: ALBUMIN 2.1 g/dl (3.4-5.0); BILIRUBIN,TOTAL 1.8 mg/dL (0.2-1); BLOOD UREA NITROGEN 5.9 mg/dL (7-18); CALCIUM 7.5 mg/dL (8.5-10.1); MAGNESIUM 2.2 mg/dL (1.8-2.4); POTASSIUM 3.5 mmol/L (3.5-5.1); TOT PROT 6.6 g/dl (6.4-8.2)
[2019-05-23] MEDS: ALBUTEROL SO4 0.083% IH SOL 2.5 MG/3 ML VIAL.NEB. NEB SCH ×3 (08:10→20:43)
--- NOTE | 2019-05-23 09:06 | PN ---
Teaching Attending Note Name of Resident: Vinayak Ashley ATTENDING PHYSICIAN STATEMENT I saw and evaluated the patient. I reviewed the resident's note and discussed the case with the resident. I agree with the resident's findings and plan as documented. SUBJECTIVE:Patient was seen earlier today. Patient feels slightly better on no oxygen, waiting for transfer to [facility], mother and a girlfriend are at bedside. Further discussion with the patient, has a hx of childhood asthma, uses rescue inhaler;albuterol as needed, works in a construction, He uses marijuana but does not vape, his girlfriend was sick a week ago with pneumonia as per patient. Vital Signs Temperature 99.3 F 05/23/19 06:55 Pulse Rate 120 H 05/23/19 08:42 Respiratory Rate 20 05/23/19 08:42 Blood Pressure 125/82 05/23/19 08:42 O2 Sat by Pulse Oximetry (%) 95 05/22/19 21:00 GENERAL: The patient is awake, alert, and oriented, in no acute distress. HEAD: Normal with no signs of trauma. EYES: PERRL, extraocular movements intact, sclera anicteric, conjunctiva clear. ENT: Ears normal, oropharynx clear without exudates, moist mucous membranes. NECK: Trachea midline, full range of motion, supple. LUNGS: decreased BS BL , scattered wheeze, no crackles, minimal accessory muscle use. HEART: Tachycardic , rate of 120 , S1, S2 without murmur, rub or gallop. ABDOMEN: Soft, NT,ND, normoactive bowel sounds, no guarding, no rebound, no hepatosplenomegaly, no masses. EXTREMITIES: 2+ pulses, warm, well-perfused, no edema. NEUROLOGICAL: Cranial nerves II through XII grossly intact. Normal speech, gait not observed. PSYCH: Normal mood, normal affect. SKIN: Warm, dry, normal turgor, no rashes or lesions noted CBCD WBC 17.1 K/mm3 (4.0-10.0) H 05/23/19 06:55 RBC 3.81 M/mm3 (4.00-5.60) L 05/23/19 06:55 Hgb 11.9 GM/dL (11.7-16.9) 05/23/19 06:55 Hct 35.1 % (35.4-49) L 05/23/19 06:55 MCV 92.2 fl (80-96) 05/23/19 06:55 MCHC 33.8 g/dl (32.0-35.9) 05/23/19 06:55 RDW 14.7 % (11.9-15.9) 05/23/19 06:55 Plt Count 308 K/MM3 (134-434) 05/23/19 06:55 MPV 8.4 fl (7.5-11.1) 05/23/19 06:55 CMP Sodium 134 mmol/L (136-145) L 05/23/19 06:55 Potassium 3.5 mmol/L (3.5-5.1) 05/23/19 06:55 Chloride 98 mmol/L (98-107) 05/23/19 06:55 Carbon Dioxide 28 mmol/L (21-32) 05/23/19 06:55 Anion Gap 9 MMOL/L (8-16) 05/23/19 06:55 BUN 5.9 mg/dL (7-18) L 05/23/19 06:55 Creatinine 1.0 mg/dL (0.55-1.3) 05/23/19 06:55 Random Glucose 149 mg/dL (74-106) H 05/23/19 06:55 Calcium 7.5 mg/dL (8.5-10.1) L 05/23/19 06:55 Total Bilirubin 1.8 mg/dL (0.2-1) H 05/23/19 06:55 AST 98 U/L (15-37) H 05/23/19 06:55 ALT 159 U/L (13-61) H 05/23/19 06:55 Alkaline Phosphatase 130 U/L (45-117) H 05/23/19 06:55 Total Protein 6.6 g/dl (6.4-8.2) 05/23/19 06:55 Albumin 2.1 g/dl (3.4-5.0) L 05/23/19 06:55 CARDIAC ENZYMES Creatine Kinase 141 U/L (26-308) 05/19/19 15:05 Current Medications Generic Name Dose Route Start Last Admin Trade Name Freq PRN Reason Stop Dose Admin Acetaminophen 650 mg 05/22/19 10:35 05/22/19 17:54 Tylenol - PO 650 mg Q6H PRN Administration Fever Or Pain Albuterol Sulfate 1 amp 05/20/19 10:43 05/23/19 03:19 Ventolin 0.083% Nebulizer Soln - NEB 1 amp Q4H PRN Administration SHORT OF BREATH/WHEEZING Albuterol Sulfate 1 amp 05/20/19 14:00 05/23/19 08:10 Ventolin 0.083% Nebulizer Soln - NEB Not Given RTID ASCENICON Heparin Sodium (Porcine) 5,000 unit 05/21/19 15:00 05/23/19 06:39 Heparin - SQ 5,000 unit TID ASCENCION Administration Piperacillin Sod/Tazobactam 50 mls @ 100 mls/hr 05/20/19 18:00 05/23/19 10:45 Sod 3.375 gm/ Dextrose IVPB 100 mls/hr Q8H-IV ASCENCION Administration Protocol Vancomycin HCl 1,500 mg/ 500 mls @ 125 mls/hr 05/22/19 17:00 05/23/19 06:39 Dextrose IVPB 125 mls/hr Q12H ASCENCION Administration Protocol Sodium Chloride 1,000 mls @ 100 mls/hr 05/22/19 15:20 05/22/19 16:57 Normal Saline - IV 100 mls/hr ASDIR ASCENCION Administration Fluconazole 200 mls @ 200 mls/hr 05/23/19 14:52 Diflucan 400 Mg/Ns Premixed Ivpb - IVPB 05/23/19 15:51 ONCE ONE Fluconazole 100 mls @ 100 mls/hr 05/24/19 10:00 Diflucan 200 Mg/Ns Premixed Ivpb - IVPB DAILY [facility] Home Medications Medication Instructions Recorded Albuterol Sulfate Inhaler - 1 - 2 inh PO QID PRN 05/19/19 [Ventolin HFA Inhaler -] Laboratory Tests 05/19/19 05/20/19 05/20/19 15:05 05:50 11:30 Total Bilirubin 5.2 H Direct Bilirubin 3.8 H AST 46 H 60 H ALT 54 74 H Alkaline Phosphatase 122 H 05/21/19 05/22/19 05/23/19 05:30 06:50 06:55 Total Bilirubin 3.1 H D 2.3 H 1.8 H Direct Bilirubin 2.4 H AST 58 H 78 H 98 H ALT 80 H 106 H 159 H Alkaline Phosphatase 119 H 128 H 130 H Microbiology 05/22/19 01:47 Urine - Urine Clean Catch Urine Culture - Final NO GROWTH OBTAINED 05/22/19 13:10 Sputum - Expectorated AFB Smear Concentration - Preliminary 05/22/19 13:10 Sputum - Expectorated Mycobacterial Culture - Preliminary 05/21/19 21:15 Blood - Peripheral Venous Blood Culture - Preliminary NO GROWTH OBTAINED AFTER 24 HOURS, INCUBATION TO CONTINUE FOR 4 DAYS. 05/21/19 20:50 Blood - Peripheral Venous Blood Culture - Preliminary NO GROWTH OBTAINED AFTER 24 HOURS, INCUBATION TO CONTINUE FOR 4 DAYS. 05/19/19 16:04 Blood - Peripheral Venous Blood Culture - Preliminary NO GROWTH OBTAINED AFTER 72 HOURS, INCUBATION TO CONTINUE FOR 2 DAYS. 05/19/19 16:04 Blood - Peripheral Venous Blood Culture - Preliminary NO GROWTH OBTAINED AFTER 72 HOURS, INCUBATION TO CONTINUE FOR 2 DAYS. 05/20/19 09:55 Sputum - Expectorated AFB Smear Concentration - Final 05/20/19 09:55 Sputum - Expectorated Mycobacterial Culture - Preliminary 05/20/19 12:13 Sputum - Expectorated Gram Stain - Final 05/20/19 12:13 Sputum - Expectorated Sputum Culture - Final Yeast Like Organism 05/19/19 16:09 Sputum - Expectorated Gram Stain - Final 05/19/19 16:09 Sputum - Expectorated Sputum Culture - Final Mr S Aureus 05/19/19 17:11 Urine - Urine Clean Catch Urine Culture - Final NO GROWTH OBTAINED 05/20/19 12:13 Urine - Urine Clean Catch Legionella Antigen - Final 05/20/19 12:13 Urine - Urine Clean Catch Streptococcus pneumoniae Antigen ( M - Final ECHO: 60-65% EJF. mild TR, rest of valves are normal , no vegetations. CT of the chest 05/23/2019--> increased left upper lobe cavitary mass with surrounding consolidation/atelectasis since 05/19/2019. slightly increased size and cavitation within right lower lobe lesion. Increased slightly the size and cavitation with right lower lobe lesion, increased loculated right pleural effusion with a larger amount of air present suspecious for bronchopleural fistula. Assessment and plan: Patient is a 34 y/o male with Pmhx of childhood asthma , uses rescue inhaler, who presented with fever , chills, and SOB with CP. He was found to have b/l PNA #Sepsis due to B/l MRSA PNA with lung abscess and suspected R sided empyema, CT result as above. also sputum growing yeast , discussed with , will start the patient on Dilflucan 400mg x1 dose followed with diflucan 200mg daily. continue Vanco and Zosyn. ABF in sputum pending , f/u QTF discussed with the thoracic sx, Dr. Houser, patient went to IR for chest tube placement and drainage, discussed with , discussed with , Discussed with to tx the patient to [facility], as per , no beds are available at [facility]. Called [facility] for updates and upgrade the patient to their ICU , also will place the patient to ICU, will wait for the cx. #VIDAL: due to volume depletion and sepsis. improved with IVF. #Acute transaminitis: improving most likely due to sepsis. Bili improving. Tylenol, drug testing, and salicylate neg # Prediabetes monitor # H/o Asthma: Nebs as needed. DVT px: heparin sq Patient requested to be transferred to Another hospital. [facility] was contacted and transfer was declined yesterday as per 's notes. [facility] accepted the patient ,will upgrade the patient to our ICU and their ICU.
--- NOTE | 2019-05-23 10:54 | PN ---
Progress Note (short form) - Note Progress Note: Pulmonology Resident HPI: Pt slightly improved with breathing today with persistent productive cough. Pt alert and continues to have MEREDITH. PE: Vital Signs Temperature 99.3 F 05/23/19 06:55 Pulse Rate 120 H 05/23/19 08:42 Respiratory Rate 20 05/23/19 08:42 Blood Pressure 125/82 05/23/19 08:42 O2 Sat by Pulse Oximetry (%) 95 05/22/19 21:00 Gen: NAD, awke, alert, sitting up in bed HEENT: NC/AT, EOMI, YAKOV, sclera anicteric LUNG: Diffuse scattered wheezes with decreased breath sound on the R. No crepitus appreciated. SpO2 95% on NC CARD: RRR no murmurs appreciated ABD: Soft, NT/ND, normoactive BS EXT: No edema CBC, BMP 05/23/19 06:55 05/23/19 06:55 Hepatic Panel Total Bilirubin 1.8 mg/dL (0.2-1) H 05/23/19 06:55 Direct Bilirubin 2.4 mg/dL (0.0-0.2) H 05/21/19 05:30 AST 98 U/L (15-37) H 05/23/19 06:55 ALT 159 U/L (13-61) H 05/23/19 06:55 Alkaline Phosphatase 130 U/L (45-117) H 05/23/19 06:55 Albumin 2.1 g/dl (3.4-5.0) L 05/23/19 06:55 05/22/19 05/22/19 15:00 15:00 ESR 102 H C-Reactive Protein 21.7 H Active Medications Acetaminophen (Tylenol -) 650 mg PO Q6H PRN PRN Reason: Fever Or Pain Last Admin: 05/22/19 17:54 Dose: 650 mg Albuterol Sulfate (Ventolin 0.083% Nebulizer Soln -) 1 amp NEB Q4H PRN PRN Reason: SHORT OF BREATH/WHEEZING Last Admin: 05/23/19 03:19 Dose: 1 amp Albuterol Sulfate (Ventolin 0.083% Nebulizer Soln -) 1 amp NEB RTID ASCENCION Last Admin: 05/23/19 08:10 Dose: Not Given Heparin Sodium (Porcine) (Heparin -) 5,000 unit SQ TID ASCENCION Last Admin: 05/23/19 06:39 Dose: 5,000 unit Piperacillin Sod/Tazobactam (Sod 3.375 gm/ Dextrose) 50 mls @ 100 mls/hr IVPB Q8H-IV ASCENCION; Protocol Last Admin: 05/23/19 10:45 Dose: 100 mls/hr Vancomycin HCl 1,500 mg/ (Dextrose) 500 mls @ 125 mls/hr IVPB Q12H ASCENCION; Protocol Last Admin: 05/23/19 06:39 Dose: 125 mls/hr Sodium Chloride (Normal Saline -) 1,000 mls @ 100 mls/hr IV ASDIR ASCENCION Last Admin: 05/22/19 16:57 Dose: 100 mls/hr Microbiology 05/22/19 01:47 Urine - Urine Clean Catch Urine Culture - Final NO GROWTH OBTAINED 05/22/19 13:10 Sputum - Expectorated AFB Smear Concentration - Preliminary 05/22/19 13:10 Sputum - Expectorated Mycobacterial Culture - Preliminary 05/21/19 21:15 Blood - Peripheral Venous Blood Culture - Preliminary NO GROWTH OBTAINED AFTER 24 HOURS, INCUBATION TO CONTINUE FOR 4 DAYS. 05/21/19 20:50 Blood - Peripheral Venous Blood Culture - Preliminary NO GROWTH OBTAINED AFTER 24 HOURS, INCUBATION TO CONTINUE FOR 4 DAYS. 05/19/19 16:04 Blood - Peripheral Venous Blood Culture - Preliminary NO GROWTH OBTAINED AFTER 72 HOURS, INCUBATION TO CONTINUE FOR 2 DAYS. 05/19/19 16:04 Blood - Peripheral Venous Blood Culture - Preliminary NO GROWTH OBTAINED AFTER 72 HOURS, INCUBATION TO CONTINUE FOR 2 DAYS. 05/20/19 09:55 Sputum - Expectorated AFB Smear Concentration - Final 05/20/19 09:55 Sputum - Expectorated Mycobacterial Culture - Preliminary 05/20/19 12:13 Sputum - Expectorated Gram Stain - Final 05/20/19 12:13 Sputum - Expectorated Sputum Culture - Final Yeast Like Organism 05/19/19 16:09 Sputum - Expectorated Gram Stain - Final 05/19/19 16:09 Sputum - Expectorated Sputum Culture - Final Mr S Aureus 05/19/19 17:11 Urine - Urine Clean Catch Urine Culture - Final NO GROWTH OBTAINED 05/20/19 12:13 Urine - Urine Clean Catch Legionella Antigen - Final 12/01/19 12:13 Urine - Urine Clean Catch Streptococcus pneumoniae Antigen ( M - Final Imaging: CT A/P: Increasing cavitary lesions compared with 05/19/19 study and increasing loculated effusion with presence of air suspicious for bronchopulmonary fistula. A/P Sepsis 2/2 Staph Pneumonia Cavitary lesions R/o empyema Transmainitis Asthma Acute renal insuffiency --Sputum and imaging revealed as above --Quantiferon and fungitell remain pending --Transthoracic U/S v. RLL percutaneous drainage with IR --Thoracic surgery consult --Maintain SpO2 >90% --Continue inhaled bronchodilators --Antibiotic per ID and primary teams --p- and c-anca serologies pending --Continue to monitor UO and Cr --Continue to trend LFTs Pt has been accepted to [facility] per primary team. Will continue to follow while at this facility Thank you for this consultative opportunity Case discussed with Dr. Aisha Feng, DO - IM PGY-3
--- NOTE | 2019-05-23 12:05 | PN ---
Progress Note, Physician History of Present Illness: pulmonary alert,mildly dyspneic,+ cough - Current Medication List Current Medications: Active Medications Acetaminophen (Tylenol -) 650 mg PO Q6H PRN PRN Reason: Fever Or Pain Last Admin: 05/22/19 17:54 Dose: 650 mg Albuterol Sulfate (Ventolin 0.083% Nebulizer Soln -) 1 amp NEB Q4H PRN PRN Reason: SHORT OF BREATH/WHEEZING Last Admin: 05/23/19 03:19 Dose: 1 amp Albuterol Sulfate (Ventolin 0.083% Nebulizer Soln -) 1 amp NEB RTID ASCENCION Last Admin: 05/23/19 08:10 Dose: Not Given Heparin Sodium (Porcine) (Heparin -) 5,000 unit SQ TID ASCENCION Last Admin: 05/23/19 06:39 Dose: 5,000 unit Piperacillin Sod/Tazobactam (Sod 3.375 gm/ Dextrose) 50 mls @ 100 mls/hr IVPB Q8H-IV ASCENCION; Protocol Last Admin: 05/23/19 10:45 Dose: 100 mls/hr Vancomycin HCl 1,500 mg/ (Dextrose) 500 mls @ 125 mls/hr IVPB Q12H ASCENCION; Protocol Last Admin: 05/23/19 06:39 Dose: 125 mls/hr Sodium Chloride (Normal Saline -) 1,000 mls @ 100 mls/hr IV ASDIR ASCENCION Last Admin: 05/22/19 16:57 Dose: 100 mls/hr - Objective Vital Signs: Vital Signs Temperature 99.3 F 05/23/19 06:55 Pulse Rate 120 H 05/23/19 08:42 Respiratory Rate 20 05/23/19 08:42 Blood Pressure 125/82 05/23/19 08:42 O2 Sat by Pulse Oximetry (%) 95 05/22/19 21:00 Constitutional: Yes: Well Nourished, Calm Eyes: Yes: WNL HENT: Yes: WNL Neck: Yes: WNL Cardiovascular: Yes: Tachycardia, S1, S2 Respiratory: Yes: CTA Bilaterally Gastrointestinal: Yes: Normal Bowel Sounds, Soft Extremities: Yes: WNL Edema: No Labs: CBC, BMP 05/23/19 06:55 05/23/19 06:55 INR, PTT INR 1.56 (0.83-1.09) H 05/21/19 08:50 - ....Imaging Cat Scan: Report Reviewed, Image Reviewed Problem List - Problems (1) Cavitary lesion of lung Code(s): J98.4 - OTHER DISORDERS OF LUNG (2) Hypoxia Code(s): R09.02 - HYPOXEMIA (3) Shortness of breath Code(s): R06.02 - SHORTNESS OF BREATH Assessment/Plan A/P Pneumonia likely Staph Bronchopleural fistula Cavitary Lesions Sepsis Acute Kidney Injury improving Elevated LFTs Asthma - antibiotics per ID - f/u cultures - quantiferon, fungitell pending - inhaled bronchodilators - O2 to keep SpO2 >90% - IVF - monitor urine output, creatinine - trend LFTs - DVT prophylaxis - IR for percutaneous cath RLL for drainage,culture - transfer to ICU for closer monitoring DR ROBLEDO
--- NOTE | 2019-05-23 12:05 | PN ---
Progress Note, Physician History of Present Illness: Pt seen and examined at bedside. He is awake and alert. He does get SOB with minimal exertion. He feels that his urine is clearer. - Current Medication List Current Medications: Active Medications Acetaminophen (Tylenol -) 650 mg PO Q6H PRN PRN Reason: Fever Or Pain Last Admin: 05/22/19 17:54 Dose: 650 mg Albuterol Sulfate (Ventolin 0.083% Nebulizer Soln -) 1 amp NEB Q4H PRN PRN Reason: SHORT OF BREATH/WHEEZING Last Admin: 05/23/19 03:19 Dose: 1 amp Albuterol Sulfate (Ventolin 0.083% Nebulizer Soln -) 1 amp NEB RTID ASCENCION Last Admin: 05/23/19 08:10 Dose: Not Given Heparin Sodium (Porcine) (Heparin -) 5,000 unit SQ TID ASCENCION Last Admin: 05/23/19 06:39 Dose: 5,000 unit Piperacillin Sod/Tazobactam (Sod 3.375 gm/ Dextrose) 50 mls @ 100 mls/hr IVPB Q8H-IV ASCENCION; Protocol Last Admin: 05/23/19 10:45 Dose: 100 mls/hr Vancomycin HCl 1,500 mg/ (Dextrose) 500 mls @ 125 mls/hr IVPB Q12H ASCENCION; Protocol Last Admin: 05/23/19 06:39 Dose: 125 mls/hr Sodium Chloride (Normal Saline -) 1,000 mls @ 100 mls/hr IV ASDIR ASCENCION Last Admin: 05/22/19 16:57 Dose: 100 mls/hr - Objective Vital Signs: Vital Signs Temperature 99.3 F 05/23/19 06:55 Pulse Rate 120 H 05/23/19 08:42 Respiratory Rate 20 05/23/19 08:42 Blood Pressure 125/82 05/23/19 08:42 O2 Sat by Pulse Oximetry (%) 95 05/22/19 21:00 Constitutional: Yes: Calm Eyes: Yes: Conjunctiva Clear HENT: Yes: Atraumatic Neck: Yes: Supple Cardiovascular: Yes: S1, S2 Respiratory: Yes: On Nasal O2, Rhonchi Gastrointestinal: Yes: Soft Musculoskeletal: Yes: WNL Edema: No Integumentary: Yes: WNL Neurological: Yes: Oriented Psychiatric: Yes: Oriented Labs: CBC, BMP 05/23/19 06:55 05/23/19 06:55 INR, PTT INR 1.56 (0.83-1.09) H 05/21/19 08:50 Assessment/Plan Current Medications Generic Name Dose Route Start Last Admin Trade Name Freq PRN Reason Stop Dose Admin Acetaminophen 650 mg 05/22/19 10:35 05/22/19 17:54 Tylenol - PO 650 mg Q6H PRN Administration Fever Or Pain Albuterol Sulfate 1 amp 05/20/19 10:43 05/23/19 03:19 Ventolin 0.083% Nebulizer Soln - NEB 1 amp Q4H PRN Administration SHORT OF BREATH/WHEEZING Albuterol Sulfate 1 amp 05/20/19 14:00 05/23/19 08:10 Ventolin 0.083% Nebulizer Soln - NEB Not Given RTID ASCENCION Heparin Sodium (Porcine) 5,000 unit 05/21/19 15:00 05/23/19 06:39 Heparin - SQ 5,000 unit TID ASCENCION Administration Piperacillin Sod/Tazobactam 50 mls @ 100 mls/hr 05/20/19 18:00 05/23/19 10:45 Sod 3.375 gm/ Dextrose IVPB 100 mls/hr Q8H-IV ASCENCION Administration Protocol Vancomycin HCl 1,500 mg/ 500 mls @ 125 mls/hr 05/22/19 17:00 05/23/19 06:39 Dextrose IVPB 125 mls/hr Q12H ASCENCION Administration Protocol Sodium Chloride 1,000 mls @ 100 mls/hr 05/22/19 15:20 05/22/19 16:57 Normal Saline - IV 100 mls/hr ASDIR ASCENCION Administration Impression 1. dehydration 2. sepsis 3. microscopic hematuria 4. hypokalemia 5. PNA Plan - cont fluids - follow serologies - follow repeat ua - avoid nephrotoxins - pulm on board - pt is being transferred to a tertiary care center
--- NOTE | 2019-05-23 12:26 | PN ---
Progress Note, Physician History of Present Illness: patient still very sob sputum production - Current Medication List Current Medications: Active Medications Acetaminophen (Tylenol -) 650 mg PO Q6H PRN PRN Reason: Fever Or Pain Last Admin: 05/22/19 17:54 Dose: 650 mg Albuterol Sulfate (Ventolin 0.083% Nebulizer Soln -) 1 amp NEB Q4H PRN PRN Reason: SHORT OF BREATH/WHEEZING Last Admin: 05/23/19 03:19 Dose: 1 amp Albuterol Sulfate (Ventolin 0.083% Nebulizer Soln -) 1 amp NEB RTID ASCENCION Last Admin: 05/23/19 08:10 Dose: Not Given Heparin Sodium (Porcine) (Heparin -) 5,000 unit SQ TID ASCENCION Last Admin: 05/23/19 06:39 Dose: 5,000 unit Piperacillin Sod/Tazobactam (Sod 3.375 gm/ Dextrose) 50 mls @ 100 mls/hr IVPB Q8H-IV ASCENCION; Protocol Last Admin: 05/23/19 10:45 Dose: 100 mls/hr Vancomycin HCl 1,500 mg/ (Dextrose) 500 mls @ 125 mls/hr IVPB Q12H ASCENCION; Protocol Last Admin: 05/23/19 06:39 Dose: 125 mls/hr Sodium Chloride (Normal Saline -) 1,000 mls @ 100 mls/hr IV ASDIR ASCENCION Last Admin: 05/22/19 16:57 Dose: 100 mls/hr - Objective Vital Signs: Vital Signs Temperature 99.3 F 05/23/19 06:55 Pulse Rate 120 H 05/23/19 08:42 Respiratory Rate 20 05/23/19 08:42 Blood Pressure 125/82 05/23/19 08:42 O2 Sat by Pulse Oximetry (%) 95 05/22/19 21:00 Constitutional: Yes: Calm, Mild Distress Cardiovascular: Yes: S1, S2 Respiratory: Yes: Regular, Poor Air Entry, SOB, SOB on Exertion, Other (cough) Gastrointestinal: Yes: Normal Bowel Sounds, Soft Musculoskeletal: Yes: WNL Extremities: Yes: WNL Neurological: Yes: Alert, Oriented Psychiatric: Yes: Alert, Oriented Labs: CBC, BMP 05/23/19 06:55 05/23/19 06:55 INR, PTT INR 1.56 (0.83-1.09) H 05/21/19 08:50 Assessment/Plan Pneumonia Cavitary Lesions Sepsis Acute Kidney Injury Elevated LFTs Asthma r/o malignancy mrsa abscess plan continue abx monitor consider getting a biopsy of the tissues again one consideration is drugs rest as per the team i think this should be treated as mrsa abscess and drained
[2019-05-23] MEDS ORDERED: FLUCONAZOLE 400 MG/NS 200 ML IVPB ONE (15:15)
--- NOTE | 2019-05-23 15:56 | PN ---
Physical Exam: SUBJECTIVE: Pt is currently is s/p drainage of the right chest due to pleural effusion. He has a chest tube that was placed. He has improved mildly. We are waiting for [facility] ICU transfer Bed, pt was already accepted. OBJECTIVE: Vital Signs Period Temp Pulse Resp BP Sys/Fontana Pulse Ox Last 24 Hr 97.8 F-100.7 F 100-120 20-23 116-135/62-82 95-95 GENERAL: The patient is awake, alert, and fully oriented, in no acute distress. EYES: PERRL, extraocular movements intact, sclera mildly icteric, ENT: oropharynx clear without exudates, moist mucous membranes. NECK: Trachea midline, full range of motion, supple. LUNGS: Moderate inspiratory wheezes, mild crackles, symptoms worsening Chest: Tenderness to palpation on the right lateral aspect of the ribs HEART: Regular rate and rhythm, S1, S2 without murmur, rub or gallop. ABDOMEN: Soft, nontender, nondistended, normoactive bowel sounds, no guarding, Back: Tenderness to palpation on the right posteriorly EXTREMITIES: 2+ pulses, warm, well-perfused, no edema. NEUROLOGICAL: Cranial nerves II through XII grossly intact. PSYCH: Normal mood, normal affect. SKIN: Warm, dry, normal turgor, no rashes Laboratory Results - last 24 hr CBC,CMP WBC 17.1 K/mm3 (4.0-10.0) H 05/23/19 06:55 RBC 3.81 M/mm3 (4.00-5.60) L 05/23/19 06:55 Hgb 11.9 GM/dL (11.7-16.9) 05/23/19 06:55 Hct 35.1 % (35.4-49) L 05/23/19 06:55 MCV 92.2 fl (80-96) 05/23/19 06:55 MCH 31.2 pg (25.7-33.7) 05/23/19 06:55 MCHC 33.8 g/dl (32.0-35.9) 05/23/19 06:55 RDW 14.7 % (11.9-15.9) 05/23/19 06:55 Plt Count 308 K/MM3 (134-434) 05/23/19 06:55 MPV 8.4 fl (7.5-11.1) 05/23/19 06:55 Absolute Neuts (auto) 19.3 K/mm3 (1.5-8.0) H 05/21/19 05:30 Neutrophils % 85.5 % (42.8-82.8) H 05/21/19 05:30 Neutrophils % (Manual) 76.0 % (42.8-82.8) 05/21/19 05:30 Band Neutrophils % 2.0 % 05/21/19 05:30 Lymphocytes % 5.5 % (8-40) L D 05/21/19 05:30 Lymphocytes % (Manual) 4.0 % (8-40) L D 05/21/19 05:30 Monocytes % 8.4 % (3.8-10.2) 05/21/19 05:30 Monocytes % (Manual) 13 % (3.8-10.2) H 05/21/19 05:30 Eosinophils % 0.2 % (0-4.5) D 05/21/19 05:30 Eosinophils % (Manual) 1.0 % (0-4.5) D 05/21/19 05:30 Basophils % 0.4 % (0-2.0) 05/21/19 05:30 Basophils % (Manual) 0.0 % (0-2.0) 05/21/19 05:30 Myelocytes % (Man) 1 % (0-2) 05/21/19 05:30 Promyelocytes % (Man) 0 % (0-2) 05/21/19 05:30 Blast Cells % (Manual) 0 % (0-0) 05/21/19 05:30 Nucleated RBC % 0 % (0-0) 05/21/19 05:30 Metamyelocytes 0 % (0-2) 05/21/19 05:30 Hypochromia 0 05/21/19 05:30 Platelet Estimate Normal 05/21/19 05:30 Polychromasia 1+ 05/21/19 05:30 Poikilocytosis 0 05/21/19 05:30 Anisocytosis 0 05/21/19 05:30 Microcytosis 0 05/21/19 05:30 Macrocytosis 0 05/21/19 05:30 Spherocytes 1+ 05/21/19 05:30 ESR 102 mm/hr (0-10) H 05/22/19 15:00 Sodium 134 mmol/L (136-145) L 05/23/19 06:55 Potassium 3.5 mmol/L (3.5-5.1) 05/23/19 06:55 Chloride 98 mmol/L (98-107) 05/23/19 06:55 Carbon Dioxide 28 mmol/L (21-32) 05/23/19 06:55 Anion Gap 9 MMOL/L (8-16) 05/23/19 06:55 BUN 5.9 mg/dL (7-18) L 05/23/19 06:55 Creatinine 1.0 mg/dL (0.55-1.3) 05/23/19 06:55 Est GFR (CKD-EPI)AfAm 112.51 05/23/19 06:55 Est GFR (CKD-EPI)NonAf 97.08 05/23/19 06:55 Random Glucose 149 mg/dL (74-106) H 05/23/19 06:55 Hemoglobin A1c % 5.7 % (4.2-6.3) 05/20/19 05:50 Lactic Acid 1.5 mmol/L (0.4-2.0) 05/20/19 07:38 Calcium 7.5 mg/dL (8.5-10.1) L 05/23/19 06:55 Phosphorus 2.0 mg/dL (2.5-4.9) L 05/23/19 06:55 Magnesium 2.2 mg/dL (1.8-2.4) 05/23/19 06:55 Total Bilirubin 1.8 mg/dL (0.2-1) H 05/23/19 06:55 Direct Bilirubin 2.4 mg/dL (0.0-0.2) H 05/21/19 05:30 AST 98 U/L (15-37) H 05/23/19 06:55 ALT 159 U/L (13-61) H 05/23/19 06:55 Alkaline Phosphatase 130 U/L (45-117) H 05/23/19 06:55 Creatine Kinase 141 U/L (26-308) 05/19/19 15:05 C-Reactive Protein 21.7 MG/DL (0.00-0.3) H 05/22/19 15:00 Total Protein 6.6 g/dl (6.4-8.2) 05/23/19 06:55 Albumin 2.1 g/dl (3.4-5.0) L 05/23/19 06:55 Active Medications Current Medications Acetaminophen (Tylenol -) 650 mg PO Q6H PRN PRN Reason: Fever Or Pain Last Admin: 05/22/19 17:54 Dose: 650 mg Albuterol Sulfate (Ventolin 0.083% Nebulizer Soln -) 1 amp NEB Q4H PRN PRN Reason: SHORT OF BREATH/WHEEZING Last Admin: 05/23/19 03:19 Dose: 1 amp Albuterol Sulfate (Ventolin 0.083% Nebulizer Soln -) 1 amp NEB RTID ASCENCION Last Admin: 05/23/19 14:45 Dose: 1 amp Heparin Sodium (Porcine) (Heparin -) 5,000 unit SQ TID ASCENCION Last Admin: 05/23/19 15:21 Dose: Not Given Piperacillin Sod/Tazobactam (Sod 3.375 gm/ Dextrose) 50 mls @ 100 mls/hr IVPB Q8H-IV ASCENCION; Protocol Last Admin: 05/23/19 10:45 Dose: 100 mls/hr Vancomycin HCl 1,500 mg/ (Dextrose) 500 mls @ 125 mls/hr IVPB Q12H ASCENCION; Protocol Last Admin: 05/23/19 06:39 Dose: 125 mls/hr Sodium Chloride (Normal Saline -) 1,000 mls @ 100 mls/hr IV ASDIR ASCENCION Last Admin: 05/22/19 16:57 Dose: 100 mls/hr Fluconazole (Diflucan 400 Mg/Ns Premixed Ivpb -) 200 mls @ 100 mls/hr IVPB ONCE ONE Stop: 05/23/19 17:14 Fluconazole (Diflucan 200 Mg/Ns Premixed Ivpb -) 100 mls @ 100 mls/hr IVPB DAILY [facility] Home Medications Medication Instructions Recorded Albuterol Sulfate Inhaler - 1 - 2 inh PO QID PRN 05/19/19 [Ventolin HFA Inhaler -] Microbiology 05/22/19 01:47 Urine - Urine Clean Catch Urine Culture - Final NO GROWTH OBTAINED 05/22/19 13:10 Sputum - Expectorated AFB Smear Concentration - Preliminary 05/22/19 13:10 Sputum - Expectorated Mycobacterial Culture - Preliminary 05/21/19 21:15 Blood - Peripheral Venous Blood Culture - Preliminary NO GROWTH OBTAINED AFTER 24 HOURS, INCUBATION TO CONTINUE FOR 4 DAYS. 05/21/19 20:50 Blood - Peripheral Venous Blood Culture - Preliminary NO GROWTH OBTAINED AFTER 24 HOURS, INCUBATION TO CONTINUE FOR 4 DAYS. 05/19/19 16:04 Blood - Peripheral Venous Blood Culture - Preliminary NO GROWTH OBTAINED AFTER 72 HOURS, INCUBATION TO CONTINUE FOR 2 DAYS. 05/19/19 16:04 Blood - Peripheral Venous Blood Culture - Preliminary NO GROWTH OBTAINED AFTER 72 HOURS, INCUBATION TO CONTINUE FOR 2 DAYS. 05/20/19 09:55 Sputum - Expectorated AFB Smear Concentration - Final 05/20/19 09:55 Sputum - Expectorated Mycobacterial Culture - Preliminary 05/20/19 12:13 Sputum - Expectorated Gram Stain - Final 05/20/19 12:13 Sputum - Expectorated Sputum Culture - Final Yeast Like Organism 05/19/19 16:09 Sputum - Expectorated Gram Stain - Final 05/19/19 16:09 Sputum - Expectorated Sputum Culture - Final Mr S Aureus 05/19/19 17:11 Urine - Urine Clean Catch Urine Culture - Final NO GROWTH OBTAINED 05/20/19 12:13 Urine - Urine Clean Catch Legionella Antigen - Final 05/20/19 12:13 Urine - Urine Clean Catch Streptococcus pneumoniae Antigen ( M - Final ASSESSMENT/PLAN: #Sepsis likely 2/2 to Pneumonia must r/o TB in the setting of 20Ib weight loss, generalized weakness, decreased appetite, CT chest with cavitary lesions Other causes to consider include necrotizing bacterial multifocal pneumonia caused by staph aureus or pseudomonas, aspergillosis or malignancy Could also be vasculitis etiology cont vanc and zosyn Started on Diflucan Airborne isolation- till TB is r/o Quantiferon for TB- pending Transferring pt to ICU untill [facility] notifies about bed #Empyema 2/2 PNA Drained by IR today, chest tube placed on the right chest #Transaminits- appears to be a mix of cholestatic and hepatocellular cause MRCP- no evidence of obstruction or cholestasis #Asthma Albuterol as need NC 2L if desats or sob- place on BiPaP #DVT ppx scds b/l FEN Fluids at 125 monitor lytes regular diet Dispo: Pt Transfered to [facility] as per pt's request, but waiting on ICU bed at [facility] Visit type - Emergency Visit Emergency Visit: Yes ED Registration Date: 05/19/19 Care time: The patient presented to the Emergency Department on the above date and was hospitalized for further evaluation of their emergent condition. - New Patient This patient is new to me today: Yes Date on this admission: 05/24/19 - Critical Care Critical Care patient: No - Discharge Referral Referred to [facility] Med P.C.: No ATTENDING PHYSICIAN STATEMENT I saw and evaluated the patient. I reviewed the resident's note and discussed the case with the resident. I agree with the resident's findings and plan as documented. SUBJECTIVE: OBJECTIVE: ASSESSMENT AND PLAN:
--- NOTE | 2019-05-23 16:00 | PN ---
Physical Exam: SUBJECTIVE: Patient seen and examined after chest tube placement. Sitting comfortably in bed. On Venti mask. Denies any pain, trouble breathing, chest pain. OBJECTIVE: Vital Signs Period Temp Pulse Resp BP Sys/Fontana Pulse Ox Last 24 Hr 97.8 F-100.7 F 100-120 20-23 116-135/62-82 95-95 GENERAL: The patient is awake, alert, and fully oriented, in no acute distress. HEAD: Normal with no signs of trauma. EYES: EOMI, no ptosis. ENT: moist mucous membranes, wearing venti mask NECK: Trachea midline, supple LUNGS: Crackles bilaterally, no wheezing, no accessory muscle use HEART: Regular rate and rhythm, S1, S2 without murmur, rub or gallop. ABDOMEN: Soft, nontender, nondistended EXTREMITIES: 2+ pulses, warm, well-perfused, no edema. NEUROLOGICAL: Cranial nerves II through XII grossly intact. Normal speech, gait not observed. PSYCH: Normal mood, normal affect. SKIN: Warm, dry. Chest tube in place, no signs of drainage, erythema, or swelling at insertion site. Laboratory Results - last 24 hr 05/22/19 05/22/19 05/22/19 15:00 15:00 16:24 WBC RBC Hgb Hct MCV MCH MCHC RDW Plt Count MPV ESR 102 H Sodium 135 L Potassium 3.2 L Chloride 98 Carbon Dioxide 29 Anion Gap 8 BUN Creatinine Est GFR (CKD-EPI)AfAm Est GFR (CKD-EPI)NonAf Random Glucose Calcium Phosphorus Magnesium Total Bilirubin AST ALT Alkaline Phosphatase C-Reactive Protein 21.7 H Total Protein Albumin Ur Random Creatinine 05/23/19 05/23/19 05/23/19 02:50 06:55 06:55 WBC 17.1 H RBC 3.81 L Hgb 11.9 Hct 35.1 L MCV 92.2 MCH 31.2 MCHC 33.8 RDW 14.7 Plt Count 308 MPV 8.4 ESR Sodium 134 L Potassium 3.5 Chloride 98 Carbon Dioxide 28 Anion Gap 9 BUN 5.9 L Creatinine 1.0 Est GFR (CKD-EPI)AfAm 112.51 Est GFR (CKD-EPI)NonAf 97.08 Random Glucose 149 H Calcium 7.5 L Phosphorus 2.0 L Magnesium 2.2 Total Bilirubin 1.8 H AST 98 H ALT 159 H Alkaline Phosphatase 130 H C-Reactive Protein Total Protein 6.6 Albumin 2.1 L Ur Random Creatinine 183.0 H Active Medications Generic Name Dose Route Start Last Admin Trade Name Freq PRN Reason Stop Dose Admin Acetaminophen 650 mg 05/22/19 10:35 05/22/19 17:54 Tylenol - PO 650 mg Q6H PRN Administration Fever Or Pain Albuterol Sulfate 1 amp 05/20/19 10:43 05/23/19 03:19 Ventolin 0.083% Nebulizer Soln - NEB 1 amp Q4H PRN Administration SHORT OF BREATH/WHEEZING Albuterol Sulfate 1 amp 05/20/19 14:00 05/23/19 14:45 Ventolin 0.083% Nebulizer Soln - NEB 1 amp RTID ASCENCION Administration Heparin Sodium (Porcine) 5,000 unit 05/21/19 15:00 05/23/19 15:21 Heparin - SQ Not Given TID ASCENCION Piperacillin Sod/Tazobactam 50 mls @ 100 mls/hr 05/20/19 18:00 05/23/19 10:45 Sod 3.375 gm/ Dextrose IVPB 100 mls/hr Q8H-IV ASCENCION Administration Protocol Vancomycin HCl 1,500 mg/ 500 mls @ 125 mls/hr 05/22/19 17:00 05/23/19 06:39 Dextrose IVPB 125 mls/hr Q12H ASCENCION Administration Protocol Sodium Chloride 1,000 mls @ 100 mls/hr 05/22/19 15:20 05/22/19 16:57 Normal Saline - IV 100 mls/hr ASDIR ASCENCION Administration Fluconazole 200 mls @ 100 mls/hr 05/23/19 15:15 Diflucan 400 Mg/Ns Premixed Ivpb - IVPB 05/23/19 17:14 ONCE ONE Fluconazole 100 mls @ 100 mls/hr 05/24/19 10:00 Diflucan 200 Mg/Ns Premixed Ivpb - IVPB DAILY ASCENCION ASSESSMENT/PLAN: 34 y/o/m with PMHx of asthma presented with complaint of shortness of breath with associated productive cough, and 20 pound weight loss over past few weeks. On CT patient found to have multiple worsening cavitary lesions bilaterally. Accepted to [facility] for transfer, pending bed availability. #Neuro - AAOx3, monitor #Cardio - ECHO with normal EF, mild tricuspid regurg, mild aortic sclerosis #Pulm - Sepsis 2/2 staph PNA, worsening cavitary lesions seen on CT - PPD test pending - s/p percutaneous RLL chest tube placement in IR - Continue Ventolin - Thoracic surgery consulted - P and C anca studies pending - Maintain SpO2 >90% - Increased left upper lobe cavitary mass size with surrounding consolidation/ atelectasis compared to study on 05/19/2019. Slightly increased size and cavitation within right lower lobe lesion. Slightly increased size and cavitation with right lower lobe lesion, increased loculation of right pleural effusion with a larger amount of air present. Suspicious for Bronchopleural fistula. #GI - Transaminitis, likely 2/2 sepsis - Trend LFTs - H&H stable, monitor #Renal - VIDAL on admission, presented with BUN 20.4/ Cr 1.4 which resolved with IV fluid hydration. - VIDAL likely 2/2 to sepsis - Hematuria on UA, concern for vasculitis - Renal U/S without acute pathology - Renal studies ordered #ID - Continue Zosyn, Vancomycin - Continue Fluconazole - Sputum cx 05/19 growing Mr S Aureus, Sputum Cx 05/20 growing yeast like organism - Blood and urine cultures without growth to date - WBC at 17.1, intermittently febrile, monitor - Airborne isolation until TB is ruled out #Prophylaxis - Heparin #FEN - NS @100mls/hr - Monitor and replete lytes as needed - Regular diet #Disposition - Accepted for transfer to [facility], pending bed availability - Monitor in ICU until transfer Visit type - Emergency Visit Emergency Visit: Yes ED Registration Date: 05/19/19 Care time: The patient presented to the Emergency Department on the above date and was hospitalized for further evaluation of their emergent condition. - New Patient This patient is new to me today: Yes Date on this admission: 05/23/19 - Critical Care Critical Care patient: Yes Total Critical Care Time (in minutes): 36 Critical Care Statement: The care of this patient involved high complexity decision making to prevent further life threatening deterioration of the patient 's condition and/or to evaluate & treat vital organ system(s) failure or risk of failure. ATTENDING PHYSICIAN STATEMENT I saw and evaluated the patient. I reviewed the resident's note and discussed the case with the resident. I agree with the resident's findings and plan as documented. SUBJECTIVE: OBJECTIVE: ASSESSMENT AND PLAN:
[2019-05-23] MEDS: SODIUM CHLORIDE 1,000 ML IV SCH (16:40)
[2019-05-23] MEDS: ACETAMINOPHEN 325 MG TABLET (FP) PO PRN (17:33)
[2019-05-23] MEDS ORDERED: ACETAMINOPHEN 1000 MG/100 ML VIAL (NON FORMULARY) IVPB ONE (17:44)
[2019-05-24 02:42] VITALS: TEMP 100.5
[2019-05-24] MEDS ORDERED: IBUPROFEN 400 MG TABLET (FP) PO ONE (02:51)
[2019-05-24] MEDS: PIPERACILLIN/TAZOB 3.375 GM 3.375 GM in DEXTROSE 5%-WATER - 50 ML IVPB SCH (03:18)
[2019-05-24 03:46] LABS: EPI CELLS 0.4 /HPF (0-5/HPF); HYALINE CASTS 1 /lpf (0-8); URINE APPEARANCE CLOUDY; URINE BACTERIA 1.4 /hpf (NEGATIVE); URINE BILIRUBIN NEGATIVE (NEGATIVE); URINE COLOR YELLOW; URINE GLUCOSE (UA) NEGATIVE (NEGATIVE); URINE KETONE NEGATIVE (NEGATIVE); URINE LEUK ESTERASE NEGATIVE (NEGATIVE); URINE NITRITE NEGATIVE (NEGATIVE); URINE PROTEIN NEGATIVE (NEGATIVE); URINE RBC 8 /hpf (0-4); URINE WBC 1 /hpf (0-5)
[2019-05-24 04:21] VITALS: BP 140/87; PULSE 108
[2019-05-24] MEDS ORDERED: FLUCONAZOLE 200 MG/NS 100 ML IVPB SCH (10:00)
[2019-05-25 18:11] LABS: ATYPICAL pANCA <1:20 titer (Neg:<1:20); C-ANCA <1:20 titer (Neg:<1:20)
== END 2019-05-24 03:50 | disposition short-term general hospital (02) | DRG 871 ==
LOC: JER 13:57 → JERBED 19:12 → J4S 05-21 19:53 → JICU 05-23 18:50
PROVIDERS: ADMIT Internal Medicine; ATTEND Internal Medicine
PROC: 0W9930Z Drainage of Right Pleural Cavity with Drainage Device, Percutaneous Approach (ICD-10-PCS; principal; 2019-05-23)
DX: A41.9 Sepsis, unspecified organism (principal); J15.20 Pneumonia due to staphylococcus, unspecified; J90 Pleural effusion, not elsewhere classified; N17.9 Acute kidney failure, unspecified; J45.909 Unspecified asthma, uncomplicated; R74.0 Nonspecific elevation of levels of transaminase and lactic acid dehydrogenase [LDH]; J98.4 Other disorders of lung; R09.02 Hypoxemia; R06.02 Shortness of breath; E87.6 Hypokalemia; E86.0 Dehydration; R31.29 Other microscopic hematuria
CPT/HCPCS: 32557; 36415; 36600; 71045-TC-FY; 71250-TC; 71275-TC; 74177-TC; 74181-TC; 76098-TC-FY; 76380-TC; 76700-TC; 76856-TC; 80048; 80051; 80053; 80076; 80307; 81003; 82248; 82550; 82565; 82803; 83036; 83516; 83520; 83605; 83735; 84100; 84155; 84165; 85025; 85027; 85379; 85610; 85651; 86038; 86140; 86225; 86256; 86480; 87040; 87070; 87075; 87077; 87086; 87102; 87116; 87186; 87205; 87206; 87210; 87389; 87449; 87804; 87899; 93005; 93010; 93306-TC; 94010; 94640; 94660; 99285-25; C1729; C1769; G0480; J0131; J1644; J7030; Q9967

== ENCOUNTER 2022-04-15 19:27 | Emergency (ER) | payer BC ==
[2022-04-15 19:42] VITALS: BP 135/82; PULSE 67; RESP 18; TEMP 98.1; BMI 34.8
[2022-04-15] MEDS ORDERED: SODIUM CHLORIDE 0.9% 500 ML INFUS.BAG IV ONE (21:06)
[2022-04-15 21:50] LABS: INR 1.13 (0.83-1.09)
[2022-04-15 22:02] LABS: CALCIUM 8.6 mg/dL (8.5-10.1)
[2022-04-15 22:03] LABS: ALBUMIN 4.2 g/dl (3.4-5.0); BLOOD UREA NITROGEN 14.7 mg/dL (7-18)
[2022-04-15 22:06] LABS: CREATININE 1.2 mg/dL (0.55-1.3)
[2022-04-15 22:08] LABS: BILIRUBIN,TOTAL 0.5 mg/dL (0.2-1); TOT PROT 7.7 g/dl (6.4-8.2)
== END 2022-04-16 | disposition left against medical advice (07) ==
LOC: JERFT 19:27
DX: R55 Syncope and collapse (principal)
CPT/HCPCS: 0241U-QW; 36415; 70450-TC; 71046-TC-FY; 72125-TC; 80053; 84443; 84484; 85610; 93005; 93010; 99285-25